=== PATIENT | female | born 1975 | race Caucasian/White ===

== ENCOUNTER 2017-10-17 06:26 | Emergency (ER) | payer BC ==
[~2017-10-17] VITALS: Ht 167.6 cm; Wt 81.4 kg
[2017-10-17] MEDS ORDERED: SODIUM CHLORIDE 0.9% 1000ML 1,000 ML IV STA (06:40)
[2017-10-17] MEDS ORDERED: ONDANSETRON INJ 2 MG/ML 2 ML VIAL IV STA (06:45)
[2017-10-17] MEDS ORDERED: MoRPHine SULFATE 4 MG/ML 1 ML CARP\\VIAL IV STA (06:45)
[2017-10-17] MEDS ORDERED: LEVO25TA5 PO (06:52)
[2017-10-17] MEDS ORDERED: HYDR12.55 PO (06:52)
[2017-10-17 07:02] LABS: BASO % 0.4 %; BASO ABS # 0.02 K/uL (0-0.2); EOS % 2.3 %; EOS ABS # 0.12 K/uL (0-0.5); HEMATOCRIT 41.7 % (37-47); HEMOGLOBIN 14.6 g/dL (12.0-16.0); IG# 0.01 K/uL (0.00-0.02); LYMPH % 27.7 %; LYMPH ABS # 1.44 K/uL (1.2-3.4); MEAN CELL VOLUME 93.9 fL (80-100); MEAN CORPUSCULAR HEMOGLOBIN 32.9 pg (25-34); MEAN PLATELET VOLUME 9.3 fL (7.4-10.4); MONO % 10.4 %; MONO ABS # 0.54 K/uL (0.11-0.59); NEUT ABS # 3.07 K/uL (1.4-6.5); PLATELET COUNT 259 K/uL (130-400); RED CELL DISTRIBUTION WIDTH CV 12.5 % (11.5-14.5); RED CELL DISTRIBUTION WIDTH SD 42.8 fL (36.4-46.3)
[2017-10-17 07:15] LABS: CREATININE 0.74 mg/dl (0.60-1.20); POTASSIUM 3.2 mmol/L (3.5-5.1)
[2017-10-17 07:17] LABS: TOTAL PROTEIN 7.7 gm/dl (6.4-8.2)
--- NOTE | 2017-10-17 07:17 | DIAGNOSTIC IMAGING REPORT ---
SINGLE VIEW CHEST CLINICAL HISTORY: Epigastric abdominal pain. FINDINGS: An AP, portable, upright chest radiograph is obtained. No prior studies are available for comparison at the time of dictation. The examination is degraded by portable technique and patient rotation. The cardiomediastinal silhouette is unremarkable. The lungs and pleural spaces are clear. No pneumothorax is seen. The bony thorax is grossly intact. IMPRESSION: No active disease in the chest. Electronically signed by: Chritsiano Schneider M.D. 10/17/2017 7:15 AM Dictated Date/Time: 10/17/2017 7:15 AM
--- NOTE | 2017-10-17 08:55 | DIAGNOSTIC IMAGING REPORT ---
ULTRASOUND RIGHT UPPER QUADRANT ABDOMEN CLINICAL HISTORY: Right upper quadrant abdominal pain. COMPARISON STUDY: No priors. TECHNIQUE: Real-time, grayscale, and color flow sonography of the right upper quadrant of the abdomen was performed. Images are reviewed in the transverse and longitudinal planes. FINDINGS: Liver: The liver is normal in size and echotexture. There is no intrahepatic biliary ductal dilatation. The main portal vein is patent. Gallbladder: The gallbladder is normal in appearance. No gallstones are identified. There is no gallbladder wall thickening or pericholecystic fluid. A sonographic Hester's sign is reportedly absent. The common bile duct measures up to 0.4 cm in diameter. Pancreas: Visualized portions of the pancreatic head and body are normal in appearance. The splenic vein is patent. Right kidney: Survey images of the right kidney demonstrate normal size and echotexture. There is no hydronephrosis. A shadowing nonobstructing calculus is seen in the right upper pole. Ascites: None. IMPRESSION: 1. No acute sonographic abnormality is seen in the right upper quadrant. No gallstones are identified. 2. A nonobstructing right renal calculus is identified. Electronically signed by: Christiano Schneider M.D. 10/17/2017 8:54 AM Dictated Date/Time: 10/17/2017 8:53 AM
[2017-10-17] MEDS ORDERED: OPTIRAY 320 IV PRN (09:30)
--- NOTE | 2017-10-17 09:53 | DIAGNOSTIC IMAGING REPORT ---
CT ABD/PELVIS IV CONTRAST ONLY CLINICAL HISTORY: Epigastric pain and fever COMPARISON STUDY: Biliary ultrasound dated 10/09/2017 TECHNIQUE: Following the IV administration of 92 mL of Optiray-320, CT scan of the abdomen and pelvis was performed from the lung bases to the proximal femurs. Images are reviewed in the axial, sagittal, and coronal planes. IV contrast was administered without complication. A dose lowering technique was utilized adhering to the principles of ALARA. CT DOSE: 745.52 mGycm FINDINGS: Lower chest: The heart is normal in size and configuration, without pericardial effusion. The lung bases and pleural spaces are clear. Liver: There is a to small to characterize 3 mm hypodensity within the right hepatic lobe. The portal vein and hepatic veins appear patent Gallbladder: Unremarkable. Spleen: Normal in size and attenuation. Pancreas: Unremarkable. Adrenal glands: Unremarkable. Kidneys: There is symmetric renal cortical enhancement. The kidneys are normal in size without hydronephrosis. There are bilateral nonobstructing renal calculi. Bowel: There are no transition zones indicate bowel obstruction. The appendix appears normal. There is no acute diverticulitis. Peritoneum: There is no intraperitoneal free air or abdominal ascites. Vasculature: The abdominal aorta is normal in course and caliber. There is a retroaortic left renal vein Adenopathy: None. Pelvic viscera: The bladder, and pelvic viscera are unremarkable. Skeletal structures: No destructive osseous lesions are seen. IMPRESSION: 1. No acute intra-abdominal or pelvic findings 2. No evidence of bowel obstruction. No evidence of free air 3. Normal appendix 4. Bilateral nephrolithiasis. No evidence of hydronephrosis. Electronically signed by: Neville Angeles M.D. 10/17/2017 9:52 AM Dictated Date/Time: 10/17/2017 9:47 AM
[2017-10-17] MEDS ORDERED: MoRPHine SULFATE 2 MG/ML CARP IV PRN ×2 (11:45)
[2017-10-17] MEDS ORDERED: ONDANSETRON INJ 2 MG/ML 2 ML VIAL IV PRN (11:45)
--- NOTE | 2017-10-17 11:51 | History and Physical ---
History & Physical Date & Time of Service: Oct 17, 2017 at 11:51 Chief Complaint: Rt Top Stomach,Major Back Pain,Fever On/Off,Chills Primary Care Physician: No Doctor, Assigned History of Present Illness Source: patient Josh is a pleasant 42-year-old female who presented to the emergency room today with complaint of right upper quadrant abdominal pain that began Sunday evening. She describes the pain as in the right upper quadrant and midline with radiation around her right side to her back. She states the pain woke her up at 4 AM on Sunday. Sharp in nature rated 8 out of 10. States the pain at this intensity would last for a couple hours and then slightly improved. She noticed that this pain would mostly occur at nighttime and wakes her up in the evening. Not necessarily after eating. States she eats pretty healthy no changes in her diet recently. She did notice subjective fever however did not take her temperature. Had associated chills and sweats following ibuprofen for presumed fever. Associated nausea and some vomiting as well as diarrhea. Last bowel movement was 2 days ago. Josh states that she was in her normal state of health prior to Sunday. She is very active and usually does not complain much of pain. She was unsure if she was having flulike symptoms however she notes that the pain has not significantly improved since Sunday. Unable to take much in by mouth. She denies of any chest pain, shortness of breath, difficulty breathing, changes in bowel habits, blood in stools, black tarry stools, heartburn, reflux, changes in urination, blood in the urine, dysuria. She has a history of kidney stones in the past but states this pain is different in quality. She also has history of endometriosis in which she has had for 5 diagnostic laparoscopies, last being in 1993. No problems with endometriosis since. Her twin sister is present during examination and states her sister does not complain much of pain. She knew something was wrong due to the constant pain since Sunday. Emergency room workup included labs no leukocytosis. CMP completely within normal limits except for slightly low potassium at 3.2. CT scan of the abdomen and pelvis with IV contrast only showed no acute intra-abdominal or pelvic findings. Right upper quadrant ultrasound showed no findings of gallstones or evidence of gallbladder wall thickening or pericholecystic fluid common bile duct measuring 0.4 cm in diameter. Single view chest x-ray within normal limits she also had troponin which was within normal limits and EKG which just showed sinus bradycardia. Past Medical/Surgical History Medical Problems: 1. Kidney Stones 2. Endometriosis 3. HTN 4. Hypothyroidism Past Surgical History: 1. Multiple diagnostic laparoscopies for endometriosis Social History Smoking Status: Never Smoker Alcohol Use: socially Drug Use: none Occupational Status: employed Allergies Coded Allergies: Penicillins (Verified Allergy, Unknown, HIVES, 10/17/17) Home Medications Scheduled Hydrochlorothiazide (Hydrochlorothiazide), 1 TAB PO DAILY Levothyroxine Sodium (Levothyroxine Sodium), 1 TAB PO DAILY Review of Systems Constitutional: + fever, + chills, + sweats, + problem reported (low appetite) Respiratory: No cough, No shortness of breath Cardiovascular: No chest pain Abdomen: + pain, + nausea, + vomiting, + diarrhea, No GI bleeding Genitourinary - Female: No dysuria, No urinary frequency, No urinary urgency Hematologic / Lymphatic: No abnormal bleeding/bruising Integumentary: No rash Physical Exam Vital Signs Date Time Temp Pulse Resp B/P (MAP) Pulse Ox O2 Delivery O2 Flow Rate FiO2 10/17/17 10:33 80 16 125/88 98 Room Air 10/17/17 08:22 57 16 145/81 97 Room Air 10/17/17 06:31 36.7 73 20 153/91 100 Room Air General Appearance: WD/WN, no apparent distress Head: normocephalic, atraumatic Eyes: sclerae normal ENT: hearing grossly normal Neck: trachea midline Respiratory/Chest: lungs clear, normal breath sounds, no respiratory distress, no accessory muscle use Cardiovascular: regular rate, rhythm, no murmur Abdomen/GI: normal bowel sounds, soft, no organomegaly, no pulsatile mass, + tenderness (RUQ on deep palpation, negative Hester's sign, no involuntary guarding, rebound, or peritonitis) Back: normal inspection Extremities/Musculoskelatal: no pedal edema Neurologic/Psych: alert, normal mood/affect, oriented x 3 Skin: normal color, warm/dry, no rash Diagnostics Laboratory Results Results Past 24 Hours Test 10/17/17 06:50 10/17/17 08:21 Range/Units White Blood Count 5.20 4.8-10.8 K/uL Red Blood Count 4.44 4.2-5.4 M/uL Hemoglobin 14.6 12.0-16.0 g/dL Hematocrit 41.7 37-47 % Mean Corpuscular Volume 93.9 80-100 fL Mean Corpuscular Hemoglobin 32.9 25-34 pg Mean Corpuscular Hemoglobin Concent 35.0 32-36 g/dl Platelet Count 259 130-400 K/uL Mean Platelet Volume 9.3 7.4-10.4 fL Neutrophils (%) (Auto) 59.0 % Lymphocytes (%) (Auto) 27.7 % Monocytes (%) (Auto) 10.4 % Eosinophils (%) (Auto) 2.3 % Basophils (%) (Auto) 0.4 % Neutrophils # (Auto) 3.07 1.4-6.5 K/uL Lymphocytes # (Auto) 1.44 1.2-3.4 K/uL Monocytes # (Auto) 0.54 0.11-0.59 K/uL Eosinophils # (Auto) 0.12 0-0.5 K/uL Basophils # (Auto) 0.02 0-0.2 K/uL RDW Standard Deviation 42.8 36.4-46.3 fL RDW Coefficient of Variation 12.5 11.5-14.5 % Immature Granulocyte % (Auto) 0.2 % Immature Granulocyte # (Auto) 0.01 0.00-0.02 K/uL Sodium Level 136 136-145 mmol/L Potassium Level 3.2 3.5-5.1 mmol/L Chloride Level 100 98-107 mmol/L Carbon Dioxide Level 29 21-32 mmol/L Anion Gap 7.0 3-11 mmol/L Blood Urea Nitrogen 10 7-18 mg/dl Creatinine 0.74 0.60-1.20 mg/dl Est Creatinine Clear Calc Drug Dose 105.4 ml/min Estimated GFR () 115.0 Estimated GFR (Non- 99.2 BUN/Creatinine Ratio 13.5 10-20 Random Glucose 98 70-99 mg/dl Calcium Level 9.0 8.5-10.1 mg/dl Total Bilirubin 0.7 0.2-1 mg/dl Direct Bilirubin 0.1 0-0.2 mg/dl Aspartate Amino Transf (AST/SGOT) 17 15-37 U/L Alanine Aminotransferase (ALT/SGPT) 24 12-78 U/L Alkaline Phosphatase 49 45-117 U/L Troponin I < 0.015 0-0.045 ng/ml Total Protein 7.7 6.4-8.2 gm/dl Albumin 4.0 3.4-5.0 gm/dl Lipase 106 73-393 U/L Urine Color YELLOW Urine Appearance CLEAR CLEAR Urine pH 7.0 4.5-7.5 Urine Specific [place] 1.008 1.000-1.030 Urine Protein NEG NEG Urine Glucose (UA) NEG NEG Urine Ketones NEG NEG Urine Occult Blood NEG NEG Urine Nitrite NEG NEG Urine Bilirubin NEG NEG Urine Urobilinogen NEG NEG Urine Leukocyte Esterase NEG NEG Urine WBC (Auto) 0 0-5 /hpf Urine RBC (Auto) 0-4 0-4 /hpf Urine Hyaline Casts (Auto) 0 0-5 /lpf Urine Epithelial Cells (Auto) 0-5 0-5 /lpf Urine Bacteria (Auto) NEG NEG Urine Test NEG NEG Diagnostic Radiology CT ABD/PELVIS IV CONTRAST ONLY CLINICAL HISTORY: Epigastric pain and fever COMPARISON STUDY: Biliary ultrasound dated 10/09/2017 TECHNIQUE: Following the IV administration of 92 mL of Optiray-320, CT scan of the abdomen and pelvis was performed from the lung bases to the proximal femurs. Images are reviewed in the axial, sagittal, and coronal planes. IV contrast was administered without complication. A dose lowering technique was utilized adhering to the principles of ALARA. CT DOSE: 745.52 mGycm FINDINGS: Lower chest: The heart is normal in size and configuration, without pericardial effusion. The lung bases and pleural spaces are clear. Liver: There is a to small to characterize 3 mm hypodensity within the right hepatic lobe. The portal vein and hepatic veins appear patent Gallbladder: Unremarkable. Spleen: Normal in size and attenuation. Pancreas: Unremarkable. Adrenal glands: Unremarkable. Kidneys: There is symmetric renal cortical enhancement. The kidneys are normal in size without hydronephrosis. There are bilateral nonobstructing renal calculi. Bowel: There are no transition zones indicate bowel obstruction. The appendix appears normal. There is no acute diverticulitis. Peritoneum: There is no intraperitoneal free air or abdominal ascites. Vasculature: The abdominal aorta is normal in course and caliber. There is a retroaortic left renal vein Adenopathy: None. Pelvic viscera: The bladder, and pelvic viscera are unremarkable. Skeletal structures: No destructive osseous lesions are seen. IMPRESSION: 1. No acute intra-abdominal or pelvic findings 2. No evidence of bowel obstruction. No evidence of free air 3. Normal appendix 4. Bilateral nephrolithiasis. No evidence of hydronephrosis. ULTRASOUND RIGHT UPPER QUADRANT ABDOMEN CLINICAL HISTORY: Right upper quadrant abdominal pain. COMPARISON STUDY: No priors. TECHNIQUE: Real-time, grayscale, and color flow sonography of the right upper quadrant of the abdomen was performed. Images are reviewed in the transverse and longitudinal planes. FINDINGS: Liver: The liver is normal in size and echotexture. There is no intrahepatic biliary ductal dilatation. The main portal vein is patent. Gallbladder: The gallbladder is normal in appearance. No gallstones are identified. There is no gallbladder wall thickening or pericholecystic fluid. A sonographic Hester's sign is reportedly absent. The common bile duct measures up to 0.4 cm in diameter. Pancreas: Visualized portions of the pancreatic head and body are normal in appearance. The splenic vein is patent. Right kidney: Survey images of the right kidney demonstrate normal size and echotexture. There is no hydronephrosis. A shadowing nonobstructing calculus is seen in the right upper pole. Ascites: None. IMPRESSION: 1. No acute sonographic abnormality is seen in the right upper quadrant. No gallstones are identified. 2. A nonobstructing right renal calculus is identified. CXR normal EKG Sinus Bradycardia otherwise normal EKG Impression Assessment and Plan 42 year-old female who presented to emergency room with RUQ abdominal pain x 4 days with associated subjective fever, nausea, vomiting, and diarrhea. Moderate severity of RUQ abdominal pain with intermittent episodes of severe pain with associated nausea. No leukocytosis, US showed no stones or evidence of acute cholecystitis, LFTS within normal limits, CT scan of abdomen and pelvis unremarkable. Examination showed soft abdomen, RUQ tenderness, no peritonitis. Plan: Given patient has had this persistent RUQ abdominal pain with associated nausea , vomiting, and inability to keep much food down would like to admit patient for observation and order HIDA scan to evaluate gallbladder further. May have Biliary dyskinesia vs PUD?? GI consultation for further evaluation HIDA scan with EF Admit to Med/Surg for observation: IV Fluids, NPO until HIDA scan, IV pain management and IV Zofran as needed, will add IV Protonix as patient NPO Will give 20 mEq of Potassium IV Discussed patient with Dr. Chua who agrees with above and will evaluate patient later today. Resuscitation Status VTE Prophylaxis Will order VTE Prophylaxis: Yes
[2017-10-17] MEDS ORDERED: IV FLUIDS COMPLETED PRN (12:45)
[2017-10-17 13:03] VITALS: O2SAT 99
[2017-10-17 13:08] VITALS: BP 149/81; PULSE 66; TEMP 36.5; O2SAT 96; Ht 167.6 cm; Wt 81.4 kg
--- NOTE | 2017-10-17 14:04 | EMERGENCY ROOM VISIT NOTE ---
History Report prepared by Pacoibcynthia: Graeme Griffith Under the Supervision of: Dr. Anuel Parmar D.O. First contact with patient: 06:36 Chief Complaint: ABDOMINAL PAIN Stated Complaint: RT TOP STOMACH,MAJOR BACK PAIN,FEVER ON/OFF,CHILLS History of Present Illness The patient is a 42 year old female who presents to the Emergency Room with complaints of intermittent RUQ abdominal pain beginning four days ago. Her pain wraps around her right side to her back. She also complains of subjective fevers , nausea, vomiting, and diarrhea. The patient's pain is worsened with eating. She rates her pain as an 8/10 in severity. She is concerned that her symptoms may be related to her gallbladder. She has no history of abdominal surgery. The patient notes that her urine appeared a bit orange a few days ago, but appeared normal yesterday. Her last normal bowel movement was two days ago. Pt denies headache, change in vision, chest pain, shortness of breath, pain with urination , and melena. She has a history of kidney stones, and states that her pain is comparable in intensity, but feels different in quality. Source of History: patient Onset: A few days ago Position: abdomen (RUQ) Symptom Intensity: 8/10 Timing: intermittent Modifying Factors (Worsening): eating Associated Symptoms: + fevers (subjective), + nausea, + vomiting, + back pain, + diarrhea, No headache, No chest pain, No SOB, No melena Review of Systems See HPI for pertinent positives & negatives. A total of 10 systems reviewed and were otherwise negative. Past Medical & Surgical Medical Problems: (1) Anorexia (2) Kidney stones (3) No Known Active Medical Problems (4) RUQ abdominal pain Family History No pertinent family history stated. Social History Smoking Status: Never Smoker Occupation Status: employed Current/Historical Medications Scheduled Hydrochlorothiazide (Hydrochlorothiazide), 1 TAB PO DAILY Levothyroxine Sodium (Levothyroxine Sodium), 1 TAB PO DAILY Allergies Coded Allergies: Penicillins (Verified Allergy, Unknown, HIVES, 10/17/17) Physical Exam Vital Signs Date Time Temp Pulse Resp B/P (MAP) Pulse Ox O2 Delivery O2 Flow Rate FiO2 10/17/17 10:33 80 16 125/88 98 Room Air 10/17/17 08:22 57 16 145/81 97 Room Air 10/17/17 06:31 36.7 73 20 153/91 100 Room Air Physical Exam GENERAL: Sitting up in bed, uncomfortable, holding RUQ. EYE EXAM: normal conjunctiva. PERRL and EOM's grossly intact. OROPHARYNX: no exudate, no erythema, lips, buccal mucosa, and tongue normal and mucous membranes are moist NECK: supple, no nuchal rigidity, no adenopathy, non-tender LUNGS: Clear to auscultation. Normal chest wall mechanics HEART: no murmurs, S1 normal and S2 normal ABDOMEN: abdomen soft, normo-active bowel sounds, no masses, no rebound or guarding. Tender to palpation of the RUQ. BACK: Back is symmetrical on inspection and there is no deformity, no midline tenderness, no CVA tenderness. SKIN: no rashes and no bruising UPPER EXTREMITIES: upper extremities are grossly normal. LOWER EXTREMITIES: No pitting edema. NEURO EXAM: Normal sensorium, cranial nerves II-XII grossly intact, normal speech, no gross weakness of arms, no gross weakness of legs. Medical Decision & Procedures ER Provider Diagnostic Interpretation: Radiology results as stated below per my review and the radiologist's interpretation: ULTRASOUND RIGHT UPPER QUADRANT ABDOMEN FINDINGS: Liver: The liver is normal in size and echotexture. There is no intrahepatic biliary ductal dilatation. The main portal vein is patent. Gallbladder: The gallbladder is normal in appearance. No gallstones are identified. There is no gallbladder wall thickening or pericholecystic fluid. A sonographic Hester's sign is reportedly absent. The common bile duct measures up to 0.4 cm in diameter. Pancreas: Visualized portions of the pancreatic head and body are normal in appearance. The splenic vein is patent. Right kidney: Survey images of the right kidney demonstrate normal size and echotexture. There is no hydronephrosis. A shadowing nonobstructing calculus is seen in the right upper pole. Ascites: None. IMPRESSION: 1. No acute sonographic abnormality is seen in the right upper quadrant. No gallstones are identified. 2. A nonobstructing right renal calculus is identified. Electronically signed by: Christiano Schneider M.D. 10/17/2017 8:54 AM SINGLE VIEW CHEST FINDINGS: An AP, portable, upright chest radiograph is obtained. No prior studies are available for comparison at the time of dictation. The examination is degraded by portable technique and patient rotation. The cardiomediastinal silhouette is unremarkable. The lungs and pleural spaces are clear. No pneumothorax is seen. The bony thorax is grossly intact. IMPRESSION: No active disease in the chest. Electronically signed by: Christiano Schneider M.D. 10/17/2017 7:[address] ABD/PELVIS IV CONTRAST ONLY FINDINGS: Lower chest: The heart is normal in size and configuration, without pericardial effusion. The lung bases and pleural spaces are clear. Liver: There is a to small to characterize 3 mm hypodensity within the right hepatic lobe. The portal vein and hepatic veins appear patent Gallbladder: Unremarkable. Spleen: Normal in size and attenuation. Pancreas: Unremarkable. Adrenal glands: Unremarkable. Kidneys: There is symmetric renal cortical enhancement. The kidneys are normal in size without hydronephrosis. There are bilateral nonobstructing renal calculi. Bowel: There are no transition zones indicate bowel obstruction. The appendix appears normal. There is no acute diverticulitis. Peritoneum: There is no intraperitoneal free air or abdominal ascites. Vasculature: The abdominal aorta is normal in course and caliber. There is a retroaortic left renal vein Adenopathy: None. Pelvic viscera: The bladder, and pelvic viscera are unremarkable. Skeletal structures: No destructive osseous lesions are seen. IMPRESSION: 1. No acute intra-abdominal or pelvic findings 2. No evidence of bowel obstruction. No evidence of free air 3. Normal appendix 4. Bilateral nephrolithiasis. No evidence of hydronephrosis. Electronically signed by: Neville Angeles M.D. 10/17/2017 9:52 AM Laboratory Results 10/17/17 06:50 Red Blood Count 4.44, Mean Corpuscular Volume 93.9, Mean Corpuscular Hemoglobin 32.9, Mean Corpuscular Hemoglobin Concent 35.0, Mean Platelet Volume 9.3, Neutrophils (%) (Auto) 59.0, Lymphocytes (%) (Auto) 27.7, Monocytes (%) (Auto) 10.4, Eosinophils (%) (Auto) 2.3, Basophils (%) (Auto) 0.4, Neutrophils # (Auto ) 3.07, Lymphocytes # (Auto) 1.44, Monocytes # (Auto) 0.54, Eosinophils # (Auto ) 0.12, Basophils # (Auto) 0.02 3/28/18 06:50 Test 10/17/17 06:50 10/17/17 08:21 White Blood Count 5.20 K/uL (4.8-10.8) Red Blood Count 4.44 M/uL (4.2-5.4) Hemoglobin 14.6 g/dL (12.0-16.0) Hematocrit 41.7 % (37-47) Mean Corpuscular Volume 93.9 fL (80-100) Mean Corpuscular Hemoglobin 32.9 pg (25-34) Mean Corpuscular Hemoglobin Concent 35.0 g/dl (32-36) Platelet Count 259 K/uL (130-400) Mean Platelet Volume 9.3 fL (7.4-10.4) Neutrophils (%) (Auto) 59.0 % Lymphocytes (%) (Auto) 27.7 % Monocytes (%) (Auto) 10.4 % Eosinophils (%) (Auto) 2.3 % Basophils (%) (Auto) 0.4 % Neutrophils # (Auto) 3.07 K/uL (1.4-6.5) Lymphocytes # (Auto) 1.44 K/uL (1.2-3.4) Monocytes # (Auto) 0.54 K/uL (0.11-0.59) Eosinophils # (Auto) 0.12 K/uL (0-0.5) Basophils # (Auto) 0.02 K/uL (0-0.2) RDW Standard Deviation 42.8 fL (36.4-46.3) RDW Coefficient of Variation 12.5 % (11.5-14.5) Immature Granulocyte % (Auto) 0.2 % Immature Granulocyte # (Auto) 0.01 K/uL (0.00-0.02) Anion Gap 7.0 mmol/L (3-11) Est Creatinine Clear Calc Drug Dose 105.4 ml/min Estimated GFR () 115.0 Estimated GFR (Non- 99.2 BUN/Creatinine Ratio 13.5 (10-20) Calcium Level 9.0 mg/dl (8.5-10.1) Total Bilirubin 0.7 mg/dl (0.2-1) Direct Bilirubin 0.1 mg/dl (0-0.2) Aspartate Amino Transf (AST/SGOT) 17 U/L (15-37) Alanine Aminotransferase (ALT/SGPT) 24 U/L (12-78) Alkaline Phosphatase 49 U/L (45-117) Troponin I < 0.015 ng/ml (0-0.045) Total Protein 7.7 gm/dl (6.4-8.2) Albumin 4.0 gm/dl (3.4-5.0) Lipase 106 U/L (73-393) Urine Color YELLOW Urine Appearance CLEAR (CLEAR) Urine pH 7.0 (4.5-7.5) Urine Specific [place] 1.008 (1.000-1.030) Urine Protein NEG (NEG) Urine Glucose (UA) NEG (NEG) Urine Ketones NEG (NEG) Urine Occult Blood NEG (NEG) Urine Nitrite NEG (NEG) Urine Bilirubin NEG (NEG) Urine Urobilinogen NEG (NEG) Urine Leukocyte Esterase NEG (NEG) Urine WBC (Auto) 0 /hpf (0-5) Urine RBC (Auto) 0-4 /hpf (0-4) Urine Hyaline Casts (Auto) 0 /lpf (0-5) Urine Epithelial Cells (Auto) 0-5 /lpf (0-5) Urine Bacteria (Auto) NEG (NEG) Urine Test NEG (NEG) Laboratory results per my review. Medications Administered Medications (Trade) Dose Ordered Sig/Gail Route Start Time Stop Time Status Last Admin Dose Admin Sodium Chloride 1,000 ml @ 999 mls/hr Q1H1M STAT IV 10/17/17 06:40 10/17/17 07:40 DC 10/17/17 06:40 999 MLS/HR Morphine Sulfate (MoRPHine SULFATE INJ) 4 mg NOW STAT IV 10/17/17 06:45 10/17/17 06:46 DC 10/17/17 06:51 4 MG Ondansetron HCl (Zofran Inj) 4 mg NOW STAT IV 10/17/17 06:45 10/17/17 06:46 DC 10/17/17 06:51 4 MG ECG Per My Interpretation Indication: abdominal pain Rate (beats per minute): 53 Rhythm: sinus bradycardia Findings: no ectopy, other (Normal axis. ) ED Course ED COURSE: Vital signs were reviewed and showed hypertension The patients medical record was reviewed The above diagnostic studies were performed and reviewed. ED treatments and interventions as stated above. 0637: The patient was evaluated in room B12B. A complete history and physical examination was performed. 0640: Ordered Sodium Chloride 1000 ml @ 999 mls/hr IV. 0645: Ordered Zofran Inj 4 mg IV, Morphine Sulfate 4 mg IV. 0857: I updated the patient on her test results. 1135: Upon reevaluation, the patient is resting. I discussed my findings with the patient and she understands and agrees with the treatment plan. Based on the patients age, coexisting illnesses, exam and lab findings the decision to treat as an inpatient was made. The patient remained stable while under my care. The patient will be evaluated for further management. Medical Decision Differential diagnoses includes but is not limited to gastritis, peptic ulcer disease, GERD, gallbladder disease, pancreatitis, small bowel obstruction, acute coronary syndrome, pericarditis, ischemic bowel, irritable bowel disease, irritable bowel syndrome, appendicitis, diverticulitis, malignancy, hernia, urinary tract infection, torsion, /ectopic , perforation, trauma, infectious. Patient is a 42-year-old female who presents to ER for right upper quadrant abdominal pain which is been present for the past 3 days. Worse with eating and drinking. On exam she is slightly tender. CBC along with BMP, LFTs, bilirubin lipase was negative. UA was unremarkable. was negative. Ultrasound and CT abdomen pelvis were benign. She was given IV narcotics. She did feel slightly better. On exam she still did have right upper quadrant tenderness. EKG and troponin were negative. Uncertain of the true etiology of her pain however I do feel this most consistent with biliary colic. She does have a trip coming up in with her presentation elect to have her evaluated by general surgery. General surgery did elect to observe her overnight for further evaluation. Medication Reconcilliation Current Medication List: was personally reviewed by me Blood Pressure Screening Patient's blood pressure: Elevated blood pressure Blood pressure disposition: Elevated BP felt to be situational Consults Time Called: 1042 Consulting Physician: Zaida Rowley PA-C - General Surgery Returned Call: 1052 I reviewed the patient's case with Zaida Rowley PA-C. General Surgery will come evaluate the patient in the ED. 1140: I spoke with Zaida Rowley PA-C again. General Surgery will evaluate the patient for further management. Impression Primary Impression: Biliary colic Scribe Attestation The scribe's documentation has been prepared under my direction and personally reviewed by me in its entirety. I confirm that the note above accurately reflects all work, treatment, procedures, and medical decision making performed by me. Departure Information Dispostion Being Evaluated By Surgeon Referrals No Doctor, Assigned (PCP) Patient Instructions My [facility]
[2017-10-17] MEDS: PANTOprazole INJ 40 MG in SYRINGE 0 ML IV SCH (14:16)
[2017-10-17] MEDS: SODIUM CHLORIDE 0.9% 1000ML 1,000 ML IV SCH (14:18)
[2017-10-17] MEDS: POTASSIUM CHLR 10 MEQ / WTR 10 MEQ in PREMIXED WATER 100 ML IV SCH ×2 (14:18→15:49)
--- NOTE | 2017-10-17 14:40 | Gastrointestinal Consultation ---
Gastrointestinal Consultation Date of Consultation: Oct 17, 2017 Attending Physician: Zaida Rowley/Dr. Gabby Chua Consulting Physician: Tavo Miramontes Reason for Consultation: RUQ abd pain, N/V/D History of Present Illness Patient is a 42 year old female seen for RUQ abd pain, n/v/d. She has hx of hypothyroidism, HTN, and at usual health state until last Sunday when she suddenly felt sharp RUQ abd pain with radiating to her back. She has associated N/V, and loose stools for the next day or so. Decreased PO intake, tried eating crackers and pain, nausea started again. She has hx of kidney stones pain and she mentioned this felt like a similar type of pay but located on RUQ abd area, and she denies any associated dysuria, hematuria. She had normal CBC, CMP including LFTs and Lipase, UA and negative urine . CT and gallbladder u /s w/o signs of gallstones, thickening, biliary dilation, bowel obstruction. She denies any tobacco, NSAIDs, + social ETOH use, no illicit drugs. Surgery had seen pt and they are planning HIDA scan. Past Medical/Surgical History Past Medical History: As above Past Surgical History: Laparoscopic surgery for endometriosis Family History Unrelated to current admission Social History Smoking Status: Never Smoker Alcohol Use: occasionally Drug Use: none Occupation Status: employed Allergies Coded Allergies: Penicillins (Verified Allergy, Unknown, HIVES, 10/17/17) Current Medications Home Meds and Scripts Medications Dose Route/Sig Max Daily Dose Days Date Category Hydrochlorothiazide 12.5 Mg Tab 1 Tab PO DAILY 10/17/17 Reported Levothyroxine Sodium 25 Mcg Tab 1 Tab PO DAILY 10/17/17 Reported Review of Systems Constitutional: No fever, No chills Respiratory: No cough, No shortness of breath Cardiac: No chest pain Abdomen: + pain (epigastric/RUQ), + nausea, + vomiting, + diarrhea Skin: No rash, No itch, No jaundice Physical Exam Date Time Temp Pulse Resp B/P (MAP) Pulse Ox O2 Delivery O2 Flow Rate FiO2 10/17/17 13:03 74 18 153/106 99 10/17/17 12:20 74 18 153/106 99 Room Air 10/17/17 10:33 80 16 125/88 98 Room Air 10/17/17 08:22 57 16 145/81 97 Room Air 10/17/17 06:31 36.7 73 20 153/91 100 Room Air General Appearance: WD/WN, no apparent distress Eyes: normal inspection, PERRL, EOMI Neck: supple, no JVD, trachea midline Respiratory/Chest: normal breath sounds, no respiratory distress, no accessory muscle use Cardiovascular: regular rate, rhythm, no gallop, no murmur Abdomen: normal bowel sounds, soft, + tenderness (RUQ) Extremities: normal inspection, no pedal edema, no calf tenderness Neurologic/Psych: alert, normal mood/affect, oriented x 3 Skin: normal color, warm/dry, no rash Laboratory Results Last 24 Hours Test 10/17/17 06:50 10/17/17 08:21 White Blood Count 5.20 K/uL Red Blood Count 4.44 M/uL Hemoglobin 14.6 g/dL Hematocrit 41.7 % Mean Corpuscular Volume 93.9 fL Mean Corpuscular Hemoglobin 32.9 pg Mean Corpuscular Hemoglobin Concent 35.0 g/dl Platelet Count 259 K/uL Mean Platelet Volume 9.3 fL Neutrophils (%) (Auto) 59.0 % Lymphocytes (%) (Auto) 27.7 % Monocytes (%) (Auto) 10.4 % Eosinophils (%) (Auto) 2.3 % Basophils (%) (Auto) 0.4 % Neutrophils # (Auto) 3.07 K/uL Lymphocytes # (Auto) 1.44 K/uL Monocytes # (Auto) 0.54 K/uL Eosinophils # (Auto) 0.12 K/uL Basophils # (Auto) 0.02 K/uL RDW Standard Deviation 42.8 fL RDW Coefficient of Variation 12.5 % Immature Granulocyte % (Auto) 0.2 % Immature Granulocyte # (Auto) 0.01 K/uL Sodium Level 136 mmol/L Potassium Level 3.2 mmol/L Chloride Level 100 mmol/L Carbon Dioxide Level 29 mmol/L Anion Gap 7.0 mmol/L Blood Urea Nitrogen 10 mg/dl Creatinine 0.74 mg/dl Est Creatinine Clear Calc Drug Dose 105.4 ml/min Estimated GFR () 115.0 Estimated GFR (Non- 99.2 BUN/Creatinine Ratio 13.5 Random Glucose 98 mg/dl Calcium Level 9.0 mg/dl Total Bilirubin 0.7 mg/dl Direct Bilirubin 0.1 mg/dl Aspartate Amino Transf (AST/SGOT) 17 U/L Alanine Aminotransferase (ALT/SGPT) 24 U/L Alkaline Phosphatase 49 U/L Troponin I < 0.015 ng/ml Total Protein 7.7 gm/dl Albumin 4.0 gm/dl Lipase 106 U/L Urine Color YELLOW Urine Appearance CLEAR Urine pH 7.0 Urine Specific [place] 1.008 Urine Protein NEG Urine Glucose (UA) NEG Urine Ketones NEG Urine Occult Blood NEG Urine Nitrite NEG Urine Bilirubin NEG Urine Urobilinogen NEG Urine Leukocyte Esterase NEG Urine WBC (Auto) 0 /hpf Urine RBC (Auto) 0-4 /hpf Urine Hyaline Casts (Auto) 0 /lpf Urine Epithelial Cells (Auto) 0-5 /lpf Urine Bacteria (Auto) NEG Urine Test NEG Impression Patient is a 42 year old female w sharp epigastric/RUQ pain radiating to back starting on Sunday, associated w N/V/D symptoms. Currently symptoms are improved but RUQ pain persist. Imaging studies w/o acute intraabdominal or hepatobiliary pathology. Her LFTs, Lipase all normal. DDx: biliary colic w passage of microlithiasis, PUD, gastritis, Hpylori, IBS. Plan - Ok for FL diet today but keep NPO after midnight for EGD eval tomorrow - Protonix 40mg daily. - Bentyl 20mg BID - If RUQ pain persist with clean EGD tomorrow, then will consider EUS eval in outpt setting. I performed a history and physical examination of the patient, including specifically on physical exam - no abdominal tenderness. I have discussed the patient's management with JAI Jung. Please refer to the nurse practitioner's note for the documented findings and plan of care. Will plan for EGD tomorrow. PPI and Bentyl for now.
[2017-10-17 15:30] VITALS: BP 111/72; PULSE 51; TEMP 36.8; O2SAT 98
[2017-10-17] MEDS: MoRPHine SULFATE 2 MG/ML CARP IV PRN ×2 (21:05→23:18)
[2017-10-17] MEDS: DICYCLOMINE HCL 20 MG TAB PO SCH (21:05)
[2017-10-17] MEDS ORDERED: NURSING VERBAL MED ORDER ONE (22:45)
[2017-10-17 22:52] VITALS: BP 124/77; PULSE 67; TEMP 36.8; O2SAT 96
[2017-10-18] MEDS: SODIUM CHLORIDE 0.9% 1000ML 1,000 ML IV SCH ×2 (02:22→12:23)
[2017-10-18 07:36] VITALS: BP 132/66; PULSE 60; TEMP 36.7; O2SAT 97
[2017-10-18] MEDS ORDERED: SINCALIDE IV SCH (08:30)
[2017-10-18] MEDS ORDERED: SODIUM CHLORIDE 0.9% IV SCH (08:30)
[2017-10-18] MEDS ORDERED: LIDOCAINE HCL 2% 2 ML VIAL (20MG/ML) ONE (10:11)
[2017-10-18] MEDS ORDERED: PROPOFOL IV EMULSION 10 MG/ML 20 ML VIAL IV ONE ×2 (10:11→11:06)
--- NOTE | 2017-10-18 10:15 | DIAGNOSTIC IMAGING REPORT ---
Nuclear medicine hepatobiliary scan with ejection fraction analysis CLINICAL HISTORY: RUQ abdominal pain, r/o biliary dyskinesia COMPARISON STUDY: No previous studies for comparison. FINDINGS: The patient was injected with 5.5 mCi of technetium 99 M Choletec. Anterior imaging was performed. Hepatic excretion appeared unremarkable. There was normal passage of activity into small bowel. The gallbladder was first visualized at 10 minute image. At 1 hour, the patient was administered 1.6 mcg of sincalide utilizing a 30 minute intravenous infusion. The gallbladder ejection fraction was normal measuring 96%. The technologist notes the patient had abdominal pain with the sincalide infusion IMPRESSION: 1. No evidence of cystic duct obstruction 2. Normal gallbladder ejection fraction of 96% 3. The patient experienced abdominal pain with the sincalide infusion Electronically signed by: Neville Angeles M.D. 10/18/2017 10:13 AM Dictated Date/Time: 10/18/2017 10:12 AM
--- NOTE | 2017-10-18 10:41 | History & Physical Bridge Note ---
H&P Re-Evaluation Bridge Note: I have examined the patient, reviewed the History & Physical and in the interval since the performance of the History & Physical I have noted the following changes of clinical significance: No changes noted
[2017-10-18] MEDS ORDERED: GLUCAGON FOR INJ 1 MG VIAL ONE (11:04)
--- NOTE | 2017-10-18 11:34 | GI REPORT ---
Procedure Date: 10/18/2017 10:38 AM Procedure: Upper GI endoscopy Indications: Epigastric abdominal pain Medicines: Monitored Anesthesia Care Complications: No immediate complications. Estimated Blood Loss: Estimated blood loss: none. Procedure: Pre-Anesthesia Assessment: - Prior to the procedure, a History and Physical was performed, and patient medications and allergies were reviewed. The patient is competent. The risks and benefits of the procedure and the sedation options and risks were discussed with the patient. All questions were answered and informed consent was obtained. Patient identification and proposed procedure were verified by the physician and the nurse in the procedure room. Mental Status Examination: alert and oriented. Airway Examination: normal oropharyngeal airway and neck mobility. Respiratory Examination: clear to auscultation. CV Examination: normal. ASA Grade Assessment: II - A patient with mild systemic disease. After reviewing the risks and benefits, the patient was deemed in satisfactory condition to undergo the procedure. The anesthesia plan was to use monitored anesthesia care (MAC). Immediately prior to administration of medications, the patient was re-assessed for adequacy to receive sedatives. The heart rate, respiratory rate, oxygen saturations, blood pressure, adequacy of pulmonary ventilation, and response to care were monitored throughout the procedure. The physical status of the patient was re-assessed after the procedure. After obtaining informed consent, the endoscope was passed under direct vision. Throughout the procedure, the patient's blood pressure, pulse, and oxygen saturations were monitored continuously. The scope was introduced through the mouth, and advanced to the second part of duodenum. The Scope was introduced through the and advanced to the. The upper GI endoscopy was accomplished without difficulty. The patient tolerated the procedure well. Findings: The examined esophagus was normal. Mildly erythematous mucosa was found in the gastric antrum. Biopsies were taken with a cold forceps for histology. Biopsies were taken with a cold forceps for Helicobacter pylori testing. Verification of patient identification for the specimen was done by the physician and nurse using the patient's name and date. Localized nodular mucosa was found in the duodenal bulb (?Gastric heterotopia). Biopsies were taken with a cold forceps for histology. The second portion of the duodenum was normal. Biopsies for histology were taken with a cold forceps for evaluation of celiac disease. The area of the papilla was normal by side viewing scope. Impression: - Normal esophagus. - Erythematous mucosa in the antrum. Biopsied. - Nodular mucosa in the duodenal bulb. Biopsied. - Normal second portion of the duodenum. Biopsied. - Normal area of the papilla. Recommendation: - Discharge patient to home (with escort). - Await pathology results. - Follow up as outpatient with GI clinic. - Continue PPI and Bentyyl trial. - If no improvement in a month then consider OP EUS. - Recall GI if needed. Tavo Miramontes MD 10/18/2017 11:33:57 AM This report has been signed electronically. Note Initiated On: 10/18/2017 10:38 AM I attest to the content of the Intraoperative Record and orders documented therein, exceptions below
--- NOTE | 2017-10-18 12:01 | Anesthesiology Progress Note ---
Anesthesia Post Op Note Date & Time Oct 18, 2017 at 12:01 Vital Signs Pain Intensity: 0.0 Vital Signs Past 12 Hours Date Time Temp Pulse Resp B/P (MAP) Pulse Ox O2 Delivery O2 Flow Rate FiO2 10/18/17 11:55 61 16 119/77 (91) 98 Room Air 10/18/17 11:40 63 16 127/89 (102) 98 Room Air 10/18/17 11:25 72 16 131/85 (100) 99 Room Air 10/18/17 10:14 36.8 61 18 123/79 (94) 99 Room Air 10/18/17 08:16 Room Air 10/18/17 07:36 36.7 60 18 132/66 (88) 97 Room Air Notes Mental Status: alert / awake / arousable, participated in evaluation Pt Amnestic to Procedure: Yes Nausea / Vomiting: adequately controlled Pain: adequately controlled Airway Patency, RR, SpO2: stable & adequate BP & HR: stable & adequate Hydration State: stable & adequate Anesthetic Complications: no major complications apparent
[2017-10-18] MEDS: DICYCLOMINE HCL 20 MG TAB PO SCH (12:21)
[2017-10-18] MEDS: PANTOprazole INJ 40 MG in SYRINGE 0 ML IV SCH (12:21)
[2017-10-18 13:06] LABS: HEMATOCRIT 37.4 % (37-47); HEMOGLOBIN 12.9 g/dL (12.0-16.0); MEAN CELL VOLUME 95.4 fL (80-100); MEAN CORPUSCULAR HEMOGLOBIN 32.9 pg (25-34); MEAN CORPUSCULAR HGB CONC 34.5 g/dl (32-36); MEAN PLATELET VOLUME 8.9 fL (7.4-10.4); PLATELET COUNT 211 K/uL (130-400); RED CELL DISTRIBUTION WIDTH CV 12.7 % (11.5-14.5); RED CELL DISTRIBUTION WIDTH SD 43.9 fL (36.4-46.3); WHITE BLOOD COUNT 6.61 K/uL (4.8-10.8)
[2017-10-18 13:41] LABS: ALBUMIN 3.6 gm/dl (3.4-5.0); CALCIUM 8.1 mg/dl (8.5-10.1); CREATININE 0.57 mg/dl (0.60-1.20); POTASSIUM 3.9 mmol/L (3.5-5.1)
[2017-10-18 13:42] LABS: TOTAL PROTEIN 6.5 gm/dl (6.4-8.2)
[2017-10-18 15:00] VITALS: BP 122/85; PULSE 56; TEMP 36.7; O2SAT 98
[2017-10-18] MEDS ORDERED: ONDA4TAB10 SL (16:26)
[2017-10-18] MEDS ORDERED: OXYC-57 PO (16:26)
[2017-10-18] MEDS ORDERED: OXYCODONE/ACETAMINOPHEN 5-325 TAB PO ONE (16:30)
[2017-10-18] MEDS ORDERED: NURSING VERBAL MED ORDER ONE (16:30)
--- NOTE | 2017-10-18 16:32 | Discharge Instructions ---
Discharge Instructions Date of Service Oct 18, 2017. Admission Reason for Admission: Anorexia, Ruq Abdominal Pain Discharge Discharge Diagnosis / Problem: RUQ abdominal pain, gastritis (mild inflammation in EGD) Discharge Goals Goal(s): Decrease discomfort, Improve function Activity Recommendations Activity Limitations: as noted below Lifting Limitations: none Exercise/Sports Limitations: as tolerated May Resume Sexual Activity: when tolerated Shower/Bathe: no limitations Driving or Machine Use: no limitations . Instructions / Follow-Up Instructions / Follow-Up Recommend bland diet in the next few weeks, slowly advance diet as tolerated in next few days You will be given prescriptions for Zofran as needed for nausea and Percocet as needed for pain. Percocet can cause constipation so drink plenty of water daily and may take OTC stool softener such as Colace. You did have some mild inflammation in your stomach on the EGD, avoid spicy foods, excessive alcohol, smoking, caffeine/soda products. If you develop severe pain, nausea, vomiting, inability to keep much food down you should go to emergency department. Follow-up with GI after your vacation, please call [facility] gastroenterology for follow up appointment Follow-up with Dr. Chua in surgical office in 1-2 weeks, please call office at [phone] to make an appointment. IF you develop pain over the weekend and would like gallbladder removed on Sunday please call office on Sunday to be seen in office on Sunday to schedule OR time on Sunday. Current Hospital Diet Patient's current hospital diet: Full Liquid Diet Discharge Diet Recommended Diet: Low Fat Diet Procedures Procedures Performed: Esophagogastroduodenoscopy W/Biopsies Pending Studies Studies pending at discharge: yes List of pending studies: EGD biopsies Medical Emergencies . Who to Call and When: Medical Emergencies: If at any time you feel your situation is an emergency, please call 911 immediately. . Non-Emergent Contact Non-Emergency issues call your: Primary Care Provider, Surgeon Call Non-Emergent contact if: you have a fever, temperature is above 101, your pain is not controlled, your pain is worsening, your pain is unusual for you . "Provider Documentation" section prepared by Zaida Rowley. . [place] Drug Monitoring Program Search Results: patient reviewed within database, no issues identified
[2017-10-18 16:38] VITALS: BP 122/85; PULSE 56; TEMP 36.7; O2SAT 98
--- NOTE | 2017-10-18 16:41 | Surgery Progress Note ---
Surgery Progress Note Date of Service Oct 18, 2017. Subjective Post OP Day: HD # 1 would like to go home still having nausea and pain but not as severe Zofran helped with nausea EGD showed some erythema in the antrum, biopsies taken, no evidence of ulcer HIDA scan with normal EF of 96%, however patient did develop exact symptoms of pain and nausea with injection during HIDA scan. No evidence of cystic duct obstruction Objective Vital Signs: Date Time Temp Pulse Resp B/P (MAP) Pulse Ox O2 Delivery O2 Flow Rate FiO2 10/18/17 16:10 Room Air 10/18/17 15:00 36.7 56 18 122/85 (97) 98 Room Air 10/18/17 11:55 61 16 119/77 (91) 98 Room Air 10/18/17 11:40 63 16 127/89 (102) 98 Room Air 10/18/17 11:25 72 16 131/85 (100) 99 Room Air 10/18/17 10:14 36.8 61 18 123/79 (94) 99 Room Air 10/18/17 08:16 Room Air 10/18/17 07:36 36.7 60 18 132/66 (88) 97 Room Air 10/17/17 23:20 Room Air 10/17/17 22:52 36.8 67 16 124/77 (93) 96 Room Air General Appearance: WD/WN, no apparent distress Head: normocephalic, atraumatic Neck: trachea midline Respiratory/Chest: no respiratory distress, no accessory muscle use Abdomen: non distended, soft, no organomegaly, no pulsatile mass, + tenderness (RUQ) Laboratory Results: Results Past 24 Hours Test 10/18/17 12:55 Range/Units White Blood Count 6.61 4.8-10.8 K/uL Red Blood Count 3.92 4.2-5.4 M/uL Hemoglobin 12.9 12.0-16.0 g/dL Hematocrit 37.4 37-47 % Mean Corpuscular Volume 95.4 80-100 fL Mean Corpuscular Hemoglobin 32.9 25-34 pg Mean Corpuscular Hemoglobin Concent 34.5 32-36 g/dl RDW Standard Deviation 43.9 36.4-46.3 fL RDW Coefficient of Variation 12.7 11.5-14.5 % Platelet Count 211 130-400 K/uL Mean Platelet Volume 8.9 7.4-10.4 fL Sodium Level 138 136-145 mmol/L Potassium Level 3.9 3.5-5.1 mmol/L Chloride Level 105 98-107 mmol/L Carbon Dioxide Level 29 21-32 mmol/L Anion Gap 4.0 3-11 mmol/L Blood Urea Nitrogen 9 7-18 mg/dl Creatinine 0.57 0.60-1.20 mg/dl Est Creatinine Clear Calc Drug Dose 136.8 ml/min Estimated GFR () 131.6 Estimated GFR (Non- 113.5 BUN/Creatinine Ratio 15.5 10-20 Random Glucose 95 70-99 mg/dl Calcium Level 8.1 8.5-10.1 mg/dl Total Bilirubin 0.8 0.2-1 mg/dl Aspartate Amino Transf (AST/SGOT) 15 15-37 U/L Alanine Aminotransferase (ALT/SGPT) 20 12-78 U/L Alkaline Phosphatase 36 45-117 U/L Total Protein 6.5 6.4-8.2 gm/dl Albumin 3.6 3.4-5.0 gm/dl Globulin 2.9 2.5-4.0 gm/dl Albumin/Globulin Ratio 1.2 0.9-2 Assessment & Plan RUQ abdominal pain with associated nausea -no leukocytosis, LFTS within normal limits - HIDA scan EF 96%, no cystic duct obstruction - EGD showed mild erythema of stomach but no ulcer disease Plan: No acute indication for laparoscopic cholecystectomy. Patient may have minute sludge causing biliary colic?? Recommend low fat/bland diet for the next few weeks, if no improvement may need outpatient EUS and or laparoscopic cholecystectomy will send home with PO Percocet PO Zofran as needed for pain and nausea respectively. follow up surgery office and GI in [address] Chua has seen and examined patient, agrees with above
--- NOTE | 2017-10-19 10:32 | Discharge Summary ---
Discharge Summary Dates Admission Date / Time: Oct 17, 2017 at 11:46 Discharge Date: Oct 18, 2017 Dispostion / Condition Discharge Disposition: Home Condition at Discharge: Good Principal Diagnosis (1) RUQ abdominal pain (2) Anorexia Problem List (1) Hypothyroidism (2) Hypertension (3) Endometriosis (4) Kidney stones Consultations / Procedures Consultations: Gastroenterology Procedures: EGD with biopsies Vaccinations: None Pending Studies / Follow-Up EGD biopsies, to be reviewed in follow-up Medication Reconciliation New Medications: Ondasetron Odt (Zofran Odt) 4 Mg Tab 4 MG SL Q6H for Nausea, #30 TAB Oxycodone/Acetaminophen 5MG/325MG (Percocet 5MG/325MG) Tab 1-2 TABLETS PO Q4H PRN for Pain, #30 TAB Continued Medications: Hydrochlorothiazide (Hydrochlorothiazide) 12.5 Mg Tab 1 TAB PO DAILY, TAB 3 Refills Levothyroxine Sodium (Levothyroxine Sodium) 25 Mcg Tab 1 TAB PO DAILY, TAB 3 Refills Admission HPI Per the Admitting provider: Johs is a pleasant 42-year-old female who presented to the emergency room today with complaint of right upper quadrant abdominal pain that began Sunday evening. She describes the pain as in the right upper quadrant and midline with radiation around her right side to her back. She states the pain woke her up at 4 AM on Sunday. Sharp in nature rated 8 out of 10. States the pain at this intensity would last for a couple hours and then slightly improved. She noticed that this pain would mostly occur at nighttime and wakes her up in the evening. Not necessarily after eating. States she eats pretty healthy no changes in her diet recently. She did notice subjective fever however did not take her temperature. Had associated chills and sweats following ibuprofen for presumed fever. Associated nausea and some vomiting as well as diarrhea. Last bowel movement was 2 days ago. Josh states that she was in her normal state of health prior to Sunday. She is very active and usually does not complain much of pain. She was unsure if she was having flulike symptoms however she notes that the pain has not significantly improved since Sunday. Unable to take much in by mouth. She denies of any chest pain, shortness of breath, difficulty breathing, changes in bowel habits, blood in stools, black tarry stools, heartburn, reflux, changes in urination, blood in the urine, dysuria. She has a history of kidney stones in the past but states this pain is different in quality. She also has history of endometriosis in which she has had for 5 diagnostic laparoscopies, last being in 1993. No problems with endometriosis since. Her twin sister is present during examination and states her sister does not complain much of pain. She knew something was wrong due to the constant pain since Sunday. Emergency room workup included labs no leukocytosis. CMP completely within normal limits except for slightly low potassium at 3.2. CT scan of the abdomen and pelvis with IV contrast only showed no acute intra-abdominal or pelvic findings. Right upper quadrant ultrasound showed no findings of gallstones or evidence of gallbladder wall thickening or pericholecystic fluid common bile duct measuring 0.4 cm in diameter. Single view chest x-ray within normal limits she also had troponin which was within normal limits and EKG which just showed sinus bradycardia. Admission Exam Per the Admitting provider: General Appearance: WD/WN, no apparent distress Head: normocephalic, atraumatic Eyes: sclerae normal ENT: hearing grossly normal Neck: trachea midline Respiratory/Chest: lungs clear, normal breath sounds, no respiratory distress, no accessory muscle use Cardiovascular: regular rate, rhythm, no murmur Abdomen/GI: normal bowel sounds, soft, no organomegaly, no pulsatile mass, + tenderness (RUQ on deep palpation, negative Hester's sign, no involuntary guarding, rebound, or peritonitis) Back: normal inspection Extremities/Musculoskelatal: no pedal edema Neurologic/Psych: alert, normal mood/affect, oriented x 3 Skin: normal color, warm/dry, no rash Hospital Course (1) RUQ abdominal pain Patient was admitted to the medical/surgical floor under observation. IV fluids , IV pain medication as needed, IV Zofran as needed for nausea, activity as tolerated, and a HIDA scan with ejection fraction were ordered. Also obtain a gastroenterology consult for further evaluation. Patient was evaluated by GI and upper endoscopy was planned for the next morning. HIDA scan was unable to be obtained until 8 AM the following day. Therefore, diet was advanced to full liquid diet and ordered n.p.o. after midnight. Patient underwent HIDA scan which showed a normal ejection fraction of 96% with no evidence of cystic duct obstruction. Patient did have reproduction of her symptoms however with injection during HIDA scan. EGD showed some mild erythema of the antrum and biopsies were taken however no evidence of peptic ulcer disease. Patient was evaluated in the afternoon on hospital day #1. She continued to have some nausea and abdominal pain however felt slightly improved. Labs show no leukocytosis and LFTs and total bilirubin within normal limits. Patient was discharged home on hospital day #1 in stable condition. She was advised to follow-up in surgical office if her pain continued or worsen. Discussion of possible outpatient cholecystectomy versus further GI evaluation was discussed. Patient understood. Discharge Instructions as given to patient Copies To Primary Care Provider: No Doctor, Assigned.
== END 2017-10-18 17:50 | disposition home or self-care (01) ==
LOC: C.EDB 06:28 → C.MSW 11:46 → CANRESERV 12:12 → ENRESERV 12:12
PROVIDERS: ADMIT Surgery; ATTEND Surgery
DX: R10.11 Right upper quadrant pain (principal); R63.0 Anorexia; E03.9 Hypothyroidism, unspecified; I10 Essential (primary) hypertension; N80.9 Endometriosis, unspecified; Z87.442 Personal history of urinary calculi; Z88.0 Allergy status to penicillin

== ENCOUNTER 2019-12-18 10:50 | Inpatient (IN) ==
[2019-12-18] MEDS ORDERED: ONDANSETRON INJ 2 MG/ML 2 ML VIAL IV STA (11:10)
[2019-12-18] MEDS ORDERED: MoRPHine SULFATE 4 MG/ML 1 ML CARP\\VIAL IV STA (11:10)
[2019-12-18] MEDS ORDERED: SODIUM CHLORIDE 0.9% 1000ML 1,000 ML IV ONE (11:10)
[2019-12-18] MEDS ORDERED: cefTRIAXone SODIUM 2,000 MG/70 ML BAG IV STA (11:11)
[2019-12-18 11:23] LABS: Basophils # (auto) 0.02 K/uL (0-0.2); Basophils % (auto) 0.2 %; Eosinophils # (auto) 0.03 K/uL (0-0.5); Eosinophils % (auto) 0.3 %; Hematocrit (blood only) 43.1 % (37-47); Hemoglobin 14.3 g/dL (12.0-16.0); Immature Granulocytes # (auto) 0.02 K/uL (0.00-0.02); Immature Granulocytes % (auto) 0.2 %; Lymphocytes # (auto) 0.99 K/uL (1.2-3.4); Lymphocytes % (auto) 9.7 %; Mean Corpuscular Hemoglobin 31.7 pg (25-34); Mean Corpuscular Hgb Conc 33.2 g/dL (32-36); Mean Corpuscular Volume 95.6 fL (80-100); Mean Platelet Volume 9.5 fL (7.4-10.4); Monocytes # (auto) 0.22 K/uL (0.11-0.59); Monocytes % (auto) 2.2 %; Neutrophils # (auto) 8.92 K/uL (1.4-6.5); Neutrophils % (auto) 87.4 %; Platelet Count 218 K/uL (130-400); RDW Coefficient of Variation 13.2 % (11.5-14.5); RDW Standard Deviation 45.9 fL (36.4-46.3); Red Blood Count 4.51 M/uL (4.2-5.4)
[2019-12-18 11:26] LABS: Appearance Urine Cloudy (Clear); Bacteria Urine Automated 4+ (Negative); Bilirubin Urine Negative (Negative); Blood Urine 1+ (Negative); Color Urine Dark Yellow; Epithelial Cell Urine Auto >30 /lpf (0-5); Glucose Urine UA Negative (Negative); Ketones Urine 1+ (Negative); Leukocyte Esterase Urine 1+ (Negative); Nitrite Urine Positive (Negative); Protein Urine 1+ (Negative); Specific Gravity Urine 1.027 (1.000-1.030); Urobilinogen Urine Negative (Negative); WBC Urine Automated >30 /hpf (0-5); pH Urine 5.5 (4.5-7.5)
--- NOTE | 2019-12-18 11:28 | Emergency Department Note ---
History of Present Illness General Chief complaint: Kidney Stone Stated complaint: BACK PAIN Source: patient Mode of arrival: ambulatory Limitations: no limitations History of Present Illness Provider complaint: "right kidney pain" Maximum Pain Intensity: 10 This 44-year-old female patient with significant past medical history of kidney stones requiring stenting presents to the emergency department today, ambulatory, complaining of "right kidney pain". The patient states she has a long history of stones and stent placement, but this was in [place] several years ago. 2 days ago, the patient began experiencing pain in her right kidney. She states she has also been experiencing intermittent chills and nausea. She has been taking ibuprofen without significant improvement. This morning upon awakening, the pain significantly worsened, leading to nausea and vomiting. The patient states she is unclear whether or not she is having a fever. She states yesterday she was unable to urinate after the afternoon, and her urine sample here in the ED today was the first time since then that she has gone. She denies any hematuria, pyuria, urinary frequency, or urinary hesitancy. She denies any abdominal pain, chest pain, dyspnea. Symptoms consistent with kidney stones she has experienced in the past. The patient rates her pain a 10/10 and describes it as sharp. Home Medications Home Medications Medication Instructions Recorded Confirmed Type No Known Home Medications 12/18/19 12/18/19 History Allergies Allergy/AdvReac Type Severity Reaction Status Date / Time Penicillins Allergy Unknown HIVES Verified 12/18/19 11:34 Past Med/Surg History Surgical History H/O tubal ligation History of laparoscopy Reports "nicked an artery" requiring 4 pints of blood -- approx age 12 History of nephrolithotomy with removal of calculi Family History (Updated 06/23/19 @ 12:12 by JAI Fuller) Aunt Breast cancer Myocardial infarction Grandfather (Paternal) Lung cancer Grandmother (Paternal) Breast cancer Sister Breast cancer Half-Sister Denies family history of Ovarian cancer Prostate cancer Colorectal cancer Social History Preferred Language: Romanian Communication Ability: Effective Beliefs That Will Affect Care: None marital status: Current Living Situation: Alone current occupational status: employed Other Information That Helps Us Care for You: No Feels Safe at Home: Yes Safety Concerns: Feels Safe At This Time Smoking Status: Former smoker Number of Years Since Quit: 20 ; Hx Alcohol Use: Yes Alcohol type: wine Alcohol Intake Frequency: Weekly Alcohol Intake Frequency Comment: 3 days a week Hx Substance Use: No Dental Care, Regularly: Yes Physical Activity Frequency: Daily Seatbelt Use: always Review of Systems A total of 10 systems reviewed and were otherwise negative Physical Exam Vital Signs Vital Signs - 24 hr 12/18/19 10:52 12/18/19 11:10 12/18/19 12:50 Temperature 37.1 C Temperature Source Oral Pulse Rate 97 H Pulse Rate [Apical] 102 H Respiratory Rate 20 18 Blood Pressure 198/118 H Blood Pressure [Left Arm] 137/86 Blood Pressure Mean 144 Blood Pressure Mean [Left Arm] 103 Pulse Oximetry 99 98 97 Oxygen Delivery Method Room Air Room Air Room Air Sepsis Recent Fever Within 48 Hours No Sepsis New/Unexplained Change in Mental Status No Sepsis Action Taken by Nursing No Action Required VITALS: Vitals are noted on the nurse's note and reviewed by myself. Patient is hypertensive. No tachycardia, afebrile, and O2 saturation 99%. GENERAL: This is a 44-year-old white female, in no acute distress, but actively vomiting due to pain, nondiaphoretic, well-developed well-nourished. SKIN: The skin was without rashes, erythema, edema, or bruising. There is no tenting of the skin. Capillary refill less than 2 seconds. HEAD: Normocephalic atraumatic. EYES: Conjunctivae without injection, sclerae without icterus. NOSE: Patent, turbinates without inflammation or discharge. No sinus tenderness. MOUTH: Mucous membranes moist. Tonsils are not enlarged. Pharynx without erythema or exudate. Uvula midline. Airway patent. Tongue does not deviate. NECK: Supple without nuchal rigidity. No lymphadenopathy. No thyromegaly. Cervical spine is nontender. No JVD. HEART: Regular rate and rhythm without murmurs gallops or rubs. LUNGS: Clear to auscultation bilaterally without wheezes, rales or rhonchi. No retractions or accessory muscle use. ABDOMEN: Positive bowel sounds x 4. Normal tympanic percussion. Soft, nontender, without masses or organomegaly. Hester sign negative. No guarding or rebound tenderness. No CVA tenderness bilaterally. MUSCULOSKELETAL: No muscle atrophy, erythema, or edema noted. Full range of motion without joint tenderness in all extremities. No tenderness to palpation. Normal gait. Strength 5/5 throughout. NEURO: Patient was alert and oriented to person place and time. No focal neurological deficits. Course Course The patient was seen and evaluated as above. An order was placed for continuous cardiac monitoring. The monitor shows a sinus tachycardia at a rate of 102 bpm. IV access obtained, labs drawn. Patient medicated with IV fluids, morphine, Zofran, and Rocephin. Patient is complaining of ongoing pain. She was given 1 mg IV Dilaudid. Imaging performed and reviewed by myself and radiologist as noted. Labs reviewed by myself. I discussed the case with JAI Lamas with urology. She recommends placing the patient n.p.o. status at midnight in case she will require stent placement tomorrow. She was agreeable with the admission and antibiotic treatment. I discussed the findings with the patient at bedside. I did recommend admission. The patient was agreeable I discussed case with the manager environmental. I discussed the case with Dr. Albright. [facility] hospitalist. He did agree to see and evaluate the patient for admission. Administered Medications Discontinued Medications Hydromorphone HCl (Dilaudid) 1 mg IV NOW STA Stop: 12/18/19 12:20 Last Admin: 12/18/19 12:21 Dose: 1 mg Documented by: [id number] Hydromorphone HCl (Dilaudid) 1 mg IV NOW STA Stop: 12/18/19 13:33 Last Admin: 12/18/19 13:41 Dose: 1 mg Documented by: [id number] Sodium Chloride (Nss 1000ml) 1,000 mls @ 999 mls/hr IV .Q1H1M ONE Stop: 12/18/19 12:10 Last Infusion: 12/18/19 12:17 Dose: 0 mls/hr Documented by: [id number] Admin: 12/18/19 11:16 Dose: 999 mls/hr Documented by: [id number] Ceftriaxone Sodium (Rocephin) 2,000 mg in 70 mls @ 140 mls/hr IV NOW STA Stop: 12/18/19 11:40 Last Infusion: 12/18/19 12:47 Dose: 0 mls/hr Documented by: [id number] Admin: 12/18/19 12:07 Dose: 140 mls/hr Documented by: [id number] Morphine Sulfate (Morphine Sulfate) 4 mg IV NOW STA Stop: 12/18/19 11:11 Last Admin: 12/18/19 11:15 Dose: 4 mg Documented by: [id number] Ondansetron HCl (Zofran) 4 mg IV NOW STA Stop: 12/18/19 11:11 Last Admin: 12/18/19 11:16 Dose: 4 mg Documented by: [id number] Medical Decision Making Differential Diagnosis Renal colic, UTI, appendicitis, diverticulitis, mesenteric ischemia, aortic pathology, infections, inflammatory bowel disease, PUD, biliary pathology, as well as other pathologies. Home Medications Current Medication List: was personally reviewed by me Laboratory Data Attestation: I reviewed the patient's lab results. No leukocytosis, anemia, thrombocytopenia. Renal, hepatic function, and electrolytes without significant abnormality. Coags normal. Lipase 95. Lactate 1.5. hCG negative. Urinalysis positive for nitrites, 4+ bacteria, ketones, blood, and white blood cells. Unfortunately, does appear to be a contaminated specimen. Result diagrams: 12/18/19 11:05 12/18/19 11:05 Lab Results 12/18/19 12/18/19 12/18/19 Range/Units 11:05 11:05 11:05 WBC 10.20 (4.8-10.8) K/uL RBC 4.51 (4.2-5.4) M/uL Hgb 14.3 (12.0-16.0) g/dL Hct 43.1 (37-47) % MCV 95.6 (80-100) fL MCH 31.7 (25-34) pg MCHC 33.2 (32-36) g/dL RDW Std Deviation 45.9 (36.4-46.3) fL RDW Coeff of Alex 13.2 (11.5-14.5) % Plt Count 218 (130-400) K/uL MPV 9.5 (7.4-10.4) fL Immature Gran % (Auto) 0.2 % Neut % (Auto) 87.4 % Lymph % (Auto) 9.7 % [place] % (Auto) 2.2 % Eos % (Auto) 0.3 % Baso % (Auto) 0.2 % Immature Gran # (Auto) 0.02 (0.00-0.02) K/uL Neut # (Auto) 8.92 H (1.4-6.5) K/uL Lymph # (Auto) 0.99 L (1.2-3.4) K/uL [place] # (Auto) 0.22 (0.11-0.59) K/uL Eos # (Auto) 0.03 (0-0.5) K/uL Baso # (Auto) 0.02 (0-0.2) K/uL PT 11.0 (9.0-12.0) Seconds INR 1.0 (0.9-1.1) APTT 31.3 H (21.0-31.0) Seconds PTT Ratio 1.1 Sodium 132 L (136-145) mmol/L Potassium 3.6 (3.5-5.1) mmol/L Chloride 99 (98-107) mmol/L Carbon Dioxide 27 (21-32) mmol/L Anion Gap 6.0 (3-11) BUN 15 (7-18) mg/dl Creatinine 1.08 (0.6-1.2) mg/dl Est Cr Clr Drug Dosing Not Reportable Est GFR ( Amer) 71.8 Est GFR (Non-Af Amer) 61.9 BUN/Creatinine Ratio 13.5 (10-20) Glucose 125 H (70-99) mg/dl Lactate (0.4-2.0) mmol/L Calcium 9.4 (8.5-10.1) mg/dl Total Bilirubin 1.1 H (0.2-1) mg/dl AST 22 (15-37) U/L ALT 35 (12-78) U/L Alkaline Phosphatase 71 (45-117) U/L Total Protein 8.5 H (6.4-8.2) gm/dl Albumin 4.1 (3.4-5.0) gm/dl Globulin 4.4 H (2.5-4.0) gm/dl Albumin/Globulin Ratio 0.9 (0.9-2) Lipase 95 (73-393) U/L HCG, Qual (Negative) Urine Color Urine Appearance (Clear) Urine pH (4.5-7.5) Ur Specific [place] (1.000-1.030) Urine Protein (Negative) Urine Glucose (UA) (Negative) Urine Ketones (Negative) Urine Blood (Negative) Urine Nitrite (Negative) Urine Bilirubin (Negative) Urine Urobilinogen (Negative) Ur Leukocyte Esterase (Negative) Urine WBC (Auto) (0-5) /hpf Urine RBC (Auto) (0-4) /hpf U Hyaline Cast (Auto) (0-5) /lpf U Epithel Cells (Auto) (0-5) /lpf Urine Bacteria (Auto) (Negative) 12/18/19 12/18/19 12/18/19 Range/Units 11:05 11:05 12:05 WBC (4.8-10.8) K/uL RBC (4.2-5.4) M/uL Hgb (12.0-16.0) g/dL Hct (37-47) % MCV (80-100) fL MCH (25-34) pg MCHC (32-36) g/dL RDW Std Deviation (36.4-46.3) fL RDW Coeff of Alex (11.5-14.5) % Plt Count (130-400) K/uL MPV (7.4-10.4) fL Immature Gran % (Auto) % Neut % (Auto) % Lymph % (Auto) % [place] % (Auto) % Eos % (Auto) % Baso % (Auto) % Immature Gran # (Auto) (0.00-0.02) K/uL Neut # (Auto) (1.4-6.5) K/uL Lymph # (Auto) (1.2-3.4) K/uL [place] # (Auto) (0.11-0.59) K/uL Eos # (Auto) (0-0.5) K/uL Baso # (Auto) (0-0.2) K/uL PT (9.0-12.0) Seconds INR (0.9-1.1) APTT (21.0-31.0) Seconds PTT Ratio Sodium (136-145) mmol/L Potassium (3.5-5.1) mmol/L Chloride (98-107) mmol/L Carbon Dioxide (21-32) mmol/L Anion Gap (3-11) BUN (7-18) mg/dl Creatinine (0.6-1.2) mg/dl Est Cr Clr Drug Dosing Est GFR ( Amer) Est GFR (Non-Af Amer) BUN/Creatinine Ratio (10-20) Glucose (70-99) mg/dl Lactate 1.5 (0.4-2.0) mmol/L Calcium (8.5-10.1) mg/dl Total Bilirubin (0.2-1) mg/dl AST (15-37) U/L ALT (12-78) U/L Alkaline Phosphatase (45-117) U/L Total Protein (6.4-8.2) gm/dl Albumin (3.4-5.0) gm/dl Globulin (2.5-4.0) gm/dl Albumin/Globulin Ratio (0.9-2) Lipase (73-393) U/L HCG, Qual Negative (Negative) Urine Color Dark Yellow Urine Appearance Cloudy A (Clear) Urine pH 5.5 (4.5-7.5) Ur Specific [place] 1.027 (1.000-1.030) Urine Protein 1+ H (Negative) Urine Glucose (UA) Negative (Negative) Urine Ketones 1+ H (Negative) Urine Blood 1+ H (Negative) Urine Nitrite Positive A (Negative) Urine Bilirubin Negative (Negative) Urine Urobilinogen Negative (Negative) Ur Leukocyte Esterase 1+ H (Negative) Urine WBC (Auto) >30 H (0-5) /hpf Urine RBC (Auto) 5-10 H (0-4) /hpf U Hyaline Cast (Auto) 10-30 H (0-5) /lpf U Epithel Cells (Auto) >30 H (0-5) /lpf Urine Bacteria (Auto) 4+ H (Negative) Imaging Data Radiologist's Impression: ABDOMEN AND PELVIS CT WITHOUT CONTRAST CT DOSE: 673.72 mGy.cm HISTORY: Acute right-sided flank pain right flank pain TECHNIQUE: Multiaxial CT images of the abdomen and pelvis were performed without contrast. A dose lowering technique was utilized adhering to the principles of ALARA. COMPARISON STUDY: CT abdomen and pelvis 10/17/2017 FINDINGS: Clear lung bases. No pneumatosis or pneumoperitoneum. Imaged inferior cardiac chambers are unremarkable. Limited evaluation of the solid abdominal organs without the use of IV contrast. Hepatic steatosis. No hepatic mass lesion or evidence of cirrhosis. The spleen, pancreas, gallbladder and adrenal glands are unremarkable. There are least 3 nonobstructing left-sided renal calculi measuring up to 3 mm. There are greater than 20 nonobstructing calculi of the ri ght kidney measuring up to approximately 6 mm. There is mild right-sided hydroureteronephrosis with reactive perinephric and periureteral stranding secondary to an obstructing 5 x 4 x 7 mm calculus of the right ureter which is noted at the level of the superior endplate of L4. Partially decompressed urinary bladder. Uterus and adnexa are unremarkable. Retroaortic left renal vein. Mild calcified plaque of the abdominal aorta. There is no adenopathy. No bowel obstruction or bowel wall thickening. Scattered hyperdense material noted within loops of pelvic small bowel. Mild fecal retention. The appendix appears normal. Soft tissues are unremarkable. Bones appear intact. IMPRESSION: 1. Mild right-sided hydroureteronephrosis secondary to an obstructing 5 x 4 x 7 mm calculus of the proximal right ureter at the level of the superior endplate L4. 2. Right greater than left nonobstructing bilateral nephrolithiasis. 3. No bowel obstruction or bowel wall thickening. Normal appendix. 4. Hepatic steatosis. ACT 112: Negative or not required by law. The above report was generated using voice recognition software. It may contain grammatical, syntax or spelling errors. Electronically signed by: Shay Tang M.D. 12/18/2019 12:32 PM Blood Pressure Blood Pressure Findings: Elevated blood pressure Blood Pressure Disposition: elevated BP felt to be situational MDM Narrative This 44-year-old female patient presents to the emergency department for right flank pain. The patient does have a known history of kidney stones and has required stents in the past. She is complaining of subjective fevers, chills, and is actively vomiting during my examination. She is afebrile on initial evaluation. Labs consistent with UTI with positive nitrites and bacteria. CT imaging does show an obstructing proximal right ureteral stone which is 5 x 4 x 7 mm. The patient does have some right-sided hydroureteronephrosis with reactive perinephric and periureteral stranding. I am concerned for pyelonephritis in the setting of ureteral stone. The patient has required multiple rounds of narcotic analgesics while here in the department. She was also started on IV fluids and ceftriaxone. I did consult with urology who will plan to stent that the patient if she does not pass the stone. The patient will be admitted to the hospitalist service for ongoing management. Please see hospitalist and urology dictation regarding ongoing management and care of this patient. The chart was completed utilizing [employer] voice recognition software. Grammatical errors, random word insertions, pronoun errors, and incomplete sentences are an occasional consequence of this system due to software limitations, ambient noise, and hardware issues. Any formal questions or concerns about the content, text, or information contained within the body of this dictation should be directly addressed to the provider for clarification. Impression & Plan Right ureteral calculus, Renal colic, Pyelonephritis, Fever and chills Discharge Plan Visit Data Chief Complaint: Kidney Stone Stated Complaint: BACK PAIN Other Complaint: Back Injury/Pain ED Provider: Keeley Johnson ED Midlevel Provider: Lucila Casillas Discharge Problem: Right ureteral calculus, Renal colic, Pyelonephritis, Fever and chills Patient Disposition: Admitted As Inpatient Discharge Instructions Interventions: ED Discharge Assessment Last Done: 12/18/19 13:46 Forms Stand Alone Forms: [facility], Virtual Emergency Department, Important Visit Information Prescriptions Prescriptions: No Action No Known Home Medications RF: 0 Referrals Referrals: Lili Friedman MD [Primary Care Provider] -
[2019-12-18 11:34] LABS: Partial Thromboplastin Ratio 1.1; Partial Thromboplastin Time 31.3 Seconds (21.0-31.0)
[2019-12-18 11:39] LABS: Alanine Aminotransferase 35 U/L (12-78); Albumin Level 4.1 gm/dl (3.4-5.0); Aspartate Aminotransferase 22 U/L (15-37); BUN Creatinine Ratio 13.5 (10-20); Blood Urea Nitrogen 15 mg/dl (7-18); Calcium 9.4 mg/dl (8.5-10.1); Carbon Dioxide 27 mmol/L (21-32); Chloride 99 mmol/L (98-107); Est GFR (African American) 71.8; Est GFR (Non-African American) 61.9; Glucose 125 mg/dl (70-99); Lipase 95 U/L (73-393); Potassium 3.6 mmol/L (3.5-5.1); Sodium 132 mmol/L (136-145)
[2019-12-18 11:42] LABS: Albumin Globulin Ratio 0.9 (0.9-2); Alkaline Phosphatase 71 U/L (45-117); Bilirubin,Total 1.1 mg/dl (0.2-1); Globulin 4.4 gm/dl (2.5-4.0); Total Protein 8.5 gm/dl (6.4-8.2)
[2019-12-18 11:49] LABS: Pregnancy Test, Serum Negative (Negative)
[2019-12-18] MEDS ORDERED: HYDROmorphone INJ 1 MG/ML SYRINGE IV STA ×2 (12:19→13:32)
--- NOTE | 2019-12-18 12:34 | CT Scan Report ---
ABDOMEN AND PELVIS CT WITHOUT CONTRAST CT DOSE: 673.72 mGy.cm HISTORY: Acute right-sided flank pain right flank pain TECHNIQUE: Multiaxial CT images of the abdomen and pelvis were performed without contrast. A dose lo wering technique was utilized adhering to the principles of ALARA. COMPARISON STUDY: CT abdomen and pelvis 10/17/2017 FINDINGS: Clear lung bases. No pneumatosis or pneumoperitoneum. Imaged inferior cardiac chambers are unremarkab le. Limited evaluation of the solid abdominal organs without the use of IV contrast. Hepatic steatosi s. No hepatic mass lesion or evidence of cirrhosis. The spleen, pancreas, gallbladder and adrenal gla nds are unremarkable. There are least 3 nonobstructing left-sided renal calculi measuring up to 3 mm. There are greater than 20 nonobstructing calculi of the right kidney measuring up to approximately 6 mm. There is mild right-sided hydroureteronephrosis with reactive perinephric and periureteral stran ding secondary to an obstructing 5 x 4 x 7 mm calculus of the right ureter which is noted at the leve l of the superior endplate of L4. Partially decompressed urinary bladder. Uterus and adnexa are unrem arkable. Retroaortic left renal vein. Mild calcified plaque of the abdominal aorta. There is no adeno juan pablo. No bowel obstruction or bowel wall thickening. Scattered hyperdense material noted within loops of pe lvic small bowel. Mild fecal retention. The appendix appears normal. Soft tissues are unremarkable. B ones appear intact. IMPRESSION: 1. Mild right-sided hydroureteronephrosis secondary to an obstructing 5 x 4 x 7 mm calculus of the pr oximal right ureter at the level of the superior endplate L4. 2. Right greater than left nonobstructing bilateral nephrolithiasis. 3. No bowel obstruction or bowel wall thickening. Normal appendix. 4. Hepatic steatosis. ACT 112: Negative or not required by law. The above report was generated using voice recognition software. It may contain grammatical, syntax o r spelling errors. Electronically signed by: Shay Tang M.D. 12/18/2019 12:32 PM
[2019-12-18] MEDS ORDERED: ONDANSETRON INJ 2 MG/ML 2 ML VIAL IV PRN ×2 (14:10→16:59)
[2019-12-18] MEDS: SODIUM CHLORIDE 0.9% 1000ML 1,000 ML IV SCH ×2 (14:29→22:32)
--- NOTE | 2019-12-18 14:46 | Urology Consultation ---
Date of Consultation December 18, 2019 Assessment & Plan (1) Right ureteral calculus: Assessment Right renal colic secondary to a proximal right ureteral calculus I did review her CT scan which shows multiple right renal stones also a proximal right ureteral calculus with some hydronephrosis Since the patient has a fever currently and is experiencing significant pain we will proceed to the OR for a cystoscopy and stent placement in the right kidney. Again I did discuss the risks and benefits with her and she agrees to proceed. History of Present Illness Attending Physician: Abisai Albright, History of Present Illness Patient is a 44-year-old white female with a past history of nephrolithiasis who presented to the emergency room today complaining of right flank pain. She has had pain for approximately 2 days. Also had some intermittent chills and nausea but no actual fever or vomiting. She has been using ibuprofen but it has not been effective denies any dysuria hematuria or other voiding problems. In the emergency room she was given pain medication but this was not effective she still having rather severe colic. Because of the intractable pain I think she needs to have a stent placed today she has had stents in the past I discussed the procedure with her including the risks of bleeding infection injury to the urethra bladder or ureter failure to get a stent in place and risk from the anesthetics. I answered all of her questions and she would like to have the stent placed Allergies Allergy/AdvReac Type Severity Reaction Status Date / Time Penicillins Allergy Unknown HIVES Verified 12/18/19 11:34 Home Medications Home Medications Medication Instructions Recorded Confirmed Type No Known Home Medications 12/18/19 12/18/19 History Patient History Surgical History H/O tubal ligation History of laparoscopy Reports "nicked an artery" requiring 4 pints of blood -- approx age 12 History of nephrolithotomy with removal of calculi Family History (Updated 06/23/19 @ 12:12 by JAI Fuller) Aunt Breast cancer Myocardial infarction Grandfather (Paternal) Lung cancer Grandmother (Paternal) Breast cancer Sister Breast cancer Half-Sister Denies family history of Ovarian cancer Prostate cancer Colorectal cancer Social History Preferred Language: Romansh Communication Ability: Effective Beliefs That Will Affect Care: None marital status: Current Living Situation: Alone current occupational status: employed Other Information That Helps Us Care for You: No Feels Safe at Home: Yes Safety Concerns: Feels Safe At This Time Smoking Status: Former smoker Number of Years Since Quit: 20 ; Hx Alcohol Use: Yes Alcohol type: wine Alcohol Intake Frequency: Weekly Alcohol Intake Frequency Comment: 3 days a week Hx Substance Use: No Dental Care, Regularly: Yes Physical Activity Frequency: Daily Seatbelt Use: always Review of Systems Review of Systems: All systems reviewed & are unremarkable except as noted in HPI & below Physical Exam Physical Exam: Patient's current temperature is 39 C her vital signs are st able She is alert and oriented x3 She is well-developed well-nourished in moderate distress Lungs are clear to auscultation Cardiac shows a regular rate and without murmur Abdomen is soft nontender there are no masses She does have rather significant right flank pain. Extremities are without clubbing cyanosis or edema Results & Data Vital Signs (Past 12 Hours) Vital Signs Temp Pulse Pulse Pulse Resp BP BP 12/18/19 14:10 39 C H 104 H 18 149/92 H 12/18/19 12:50 102 H 18 137/86 12/18/19 11:10 12/18/19 10:52 37.1 C 97 H 20 198/118 H Pulse Ox 12/18/19 14:10 93 12/18/19 12:50 97 12/18/19 11:10 98 12/18/19 10:52 99 PG Care Time/CCT Total # of Minutes Spent Total Time Spent with Patient: Total time spent is greater than 50% in coordination of care (as documented) at patient's floor/unit and/or counseling patient: Coding Level of Care Code 52100 Inpt Consult Level 3 Diagnoses Right ureteral calculus N20.1
[2019-12-18] MEDS: OXYCODONE HCL IR 5 MG TAB (IMMEDIATE RELEASE) PO PRN ×2 (14:48→19:32)
[2019-12-18] MEDS ORDERED: fentaNYL citrate 100 MCG/2 ML VIAL ONE (15:36)
[2019-12-18] MEDS ORDERED: MIDAZOLAM HCL 1 MG/ML 2ML VIAL ONE (15:36)
[2019-12-18] MEDS ORDERED: OXYCODONE HCL IR 5 MG TAB (IMMEDIATE RELEASE) PO STA (15:52)
--- NOTE | 2019-12-18 16:11 | History & Physical Bridge Note ---
Date of Service December 18, 2019 History & Physical Bridge Note I have examined the patient, reviewed the History & Physical and in the interval since the performance of the History & Physical I have noted the following changes of clinical significance: no changes noted
--- NOTE | 2019-12-18 16:11 | Anesthesiology Consultation ---
Date of Service December 18, 2019 Assessment & Plan Chart Review Chart Review: Acceptable Risk for Surgery and Patient NOT seen in Pre Admission Testing Consults Requested none ASA ASA2E Proposed Anesthesia Anesthesia Type: General Risk / Benefits Reviewed With: PT / POA / Parent / Guardian, Accepts Plan and Informed Consent Obtained Additional Comments: no s/sx's covid History Surgery Operation Date: 12/18/19 15:30 Proposed Procedures p Cystoscopy, Right Stent Placement - Jose Ojeda MD Height/Weight Height: 5 ft 6 in Weight: 86 kg Allergies Allergy/AdvReac Type Severity Reaction Status Date / Time Penicillins Allergy Unknown HIVES Verified 12/18/19 11:34 Medications Home Medications Medication Instructions Recorded Confirmed Last Taken No Known Home Medications 12/18/19 12/18/19 Unknown Active Medications Generic Name Dose Route Start Last Admin Trade Name Freq PRN Reason Stop Dose Admin Sodium Chloride 1,000 mls @ 125 mls/hr 12/18/19 14:10 12/18/19 14:29 Nss 1000ml IV 01/17/20 14:09 125 mls/hr .Q8H KAELA Administration Oxycodone HCl 5 mg 12/18/19 14:10 12/18/19 14:48 Roxicodone Immediate Rel PO 01/01/20 14:09 5 mg Q4 PRN Administration Pain NPO Date Last Intake of Fluids: 12/18/19 Time Last Intake of Fluids: 05:00 Last Intake of Fluids Comment: sips of water with pills Date Last Intake of Solids: 12/16/19 Time Last Intake of Solids: 17:00 Past Medical History Medical History History of blood transfusion Hypertension Hypothyroidism (Chronic) Kidney stones (Resolved) Exercise / Class Metabolic Activity II 4-5 Yardwork/Stairs/Walk up hill Past Family History Family History Aunt Breast cancer Myocardial infarction Grandfather (Paternal) Lung cancer Grandmother (Paternal) Breast cancer Sister Breast cancer Half-Sister Denies family history of Ovarian cancer Prostate cancer Colorectal cancer Past Surgical History Surgical History H/O tubal ligation History of laparoscopy Reports "nicked an artery" requiring 4 pints of blood -- approx age 12 History of nephrolithotomy with removal of calculi Past Anesthesia History No Hx of Anesthesia Complications and No Family Hx of Anesthesia Complications History of PONV No Hx of PONV and No Hx of Motion Sickness Social History Smoking Status: Former smoker Hx Alcohol Use: Yes Alcohol type: wine alcohol intake frequency: a few times a week Hx Substance Use: No Physical Exam Vital Signs Last Vital Signs Temp 37.9 C H 12/18/19 15:45 Pulse 102 H 12/18/19 15:45 Resp 20 12/18/19 15:45 BP 137/85 12/18/19 15:45 Pulse Ox 96 12/18/19 15:45 Constitutional + obese ENMT Mouth: no dentition abnormality Thyromental Distance: < 3.5 Finger Breadths Mallampati Class: II Neck normal visual inspection and trachea midline; neck extension not limited Respiratory normal respiratory effort Auscultation: lungs clear to auscultation bilaterally Cardiovascular Rate/Rhythm: regular rate and regular rhythm Heart Sounds: no murmur Vessels: no carotid bruit Musculoskeletal Spine: normal cervical ROM Extremities: extremities normal to inspection Neurologic moves all extremities Motor/Sensory: no sensory deficit Psychiatric Orientation: alert and oriented x 3 Testing Laboratory Results 12/18/19 11:05 12/18/19 11:05 PT 11.0 Seconds (9.0-12.0) 12/18/19 11:05 INR 1.0 (0.9-1.1) 12/18/19 11:05 APTT 31.3 Seconds (21.0-31.0) H 12/18/19 11:05 Urine Color Dark Yellow 12/18/19 11:05 Urine Appearance Cloudy (Clear) A 12/18/19 11:05 Urine pH 5.5 (4.5-7.5) 12/18/19 11:05 Ur Specific [place] 1.027 (1.000-1.030) 12/18/19 11:05 Urine Protein 1+ (Negative) H 12/18/19 11:05 Urine Glucose (UA) Negative (Negative) 12/18/19 11:05 Urine Ketones 1+ (Negative) H 12/18/19 11:05 Urine Nitrite Positive (Negative) A 12/18/19 11:05 Ur Leukocyte Esterase 1+ (Negative) H 12/18/19 11:05 Urine WBC (Auto) >30 /hpf (0-5) H 12/18/19 11:05 Urine RBC (Auto) 5-10 /hpf (0-4) H 12/18/19 11:05 U Hyaline Cast (Auto) 10-30 /lpf (0-5) H 12/18/19 11:05 U Epithel Cells (Auto) >30 /lpf (0-5) H 12/18/19 11:05 Urine Bacteria (Auto) 4+ (Negative) H 12/18/19 11:05 Electrocardiogram Date: 12/18/19 Findings: + NSR @ (at 98;T wave abnlty;? infer. ischemia)
[2019-12-18] MEDS ORDERED: IOTHALAMATE MEGLUMINE II 17.2% 250 ML VIAL ONE (16:22)
[2019-12-18] MEDS ORDERED: PROPOFOL IV EMULSION 10 MG/ML 20 ML VIAL IV ONE (16:31)
[2019-12-18] MEDS ORDERED: LIDOCAINE HCL 2% 2 ML VIAL/AMP(20MG/ML) INFIL ONE (16:31)
[2019-12-18] MEDS ORDERED: ONDANSETRON INJ 2 MG/ML 2 ML VIAL ONE (16:32)
--- NOTE | 2019-12-18 16:53 | Post Operative Brief Note ---
PG Immediate Post Op with CF Date of Surgery December 18, 2019 Pre & Post Diagnosis Operation Date: 12/18/19 15:30 Pre-Op Diagnosis: Right ureteral stone Post-Op Diagnosis: Right ureteral stone I identified the patient and participated in the time-out.: Yes Procedure Operation Date: 12/18/19 15:30 Actual Procedures p Cystoscopy, Right Retrograde Pyelogram, Right Stent Placement(Right) - Jose Ojeda MD Surgeon Jose Ojeda MD Card Cutter Helper none Estimated Blood Loss 0 Findings Consistent with Post-Op Diagnosis
[2019-12-18] MEDS ORDERED: FLUMAZENIL 0.1 MG/1 ML 10 ML VIAL IV PRN (16:59)
[2019-12-18] MEDS ORDERED: NALOXONE HCL 0.4 MG/1 ML VIAL/CARP IV PRN (16:59)
[2019-12-18] MEDS ORDERED: LABETALOL HCL IV 5 MG/ML 20ML IV PRN (16:59)
[2019-12-18] MEDS ORDERED: PROMETHAZINE HCL 12.5 MG in SODIUM CHLORIDE 0.9% 50 ML IV PRN (16:59)
[2019-12-18] MEDS ORDERED: ePHEDrine sulfate 50 MG/ML AMP IV PRN (16:59)
[2019-12-18] MEDS ORDERED: ATROPINE SULFATE 0.1 MG/ML 10ML SYR IV PRN (16:59)
[2019-12-18] MEDS ORDERED: HYDROmorphone INJ 1 MG/ML SYRINGE IV PRN (16:59)
--- NOTE | 2019-12-18 17:02 | Fluoroscopy Report ---
FL retrograde includes kub CLINICAL HISTORY: CYSTO/STENT PLACEMENT COMPARISON STUDY: CT scan dated 12/18/2019 FLUOROSCOPY TIME: 27 seconds. NUMBER OF FLUOROSCOPIC IMAGES: 6 FINDINGS: 6 intraoperative fluoroscopic spot images are provided for interpretation. These demonstrat e retrograde catheterization of the right ureter. The collecting system was never significantly opaci fied. The final 2 images demonstrate placement of a double pigtail right-sided nephroureteral stent. The proximal pigtail did not fully formed. IMPRESSION: Retrograde examination with placement of a right-sided nephroureteral stent. ACT 112: Negative or not required by law. Electronically signed by: Neville Angeles M.D. 12/18/2019 5:01 PM
[2019-12-18] MEDS: fentaNYL citrate 100 MCG/2 ML VIAL IV PRN ×2 (17:04→17:09)
--- NOTE | 2019-12-18 17:19 | Operative Report (OR) ---
DATE OF OPERATION: 12/18/2019 PROCEDURE PERFORMED: Right cystoscopy and right stent. PREOPERATIVE DIAGNOSES: Urinary tract infection with fever and chills, right obstructing ureteral calculus. POSTOPERATIVE DIAGNOSES: Urinary tract infection with fever and chills, right obstructing ureteral calculus. SURGEON: Jose Ojeda MD. ANESTHESIA: Sedation. INDICATIONS: The patient is a 44-year-old female with previous history of stones who presented with acute-onset severe right flank pain and had chills and fever and had fever in the OR, pyuria who had a proximal right ureteral stone and also some stones in the lower pole of the right kidney. The patient presents for stent placement. She was in severe pain and because of the fever and the pyuria, a stent was to be placed to allow her to clear her infection and possibly have either lithotripsy or ureteroscopy later on. DESCRIPTION OF THE PROCEDURE: The patient was taken to the cysto suite where sedation was given. She was placed in dorsal lithotomy position. She had been given ceftriaxone in the Emergency Room. A cystoscope was placed. The right ureteral orifice was identified. A retrograde was performed, but I could not get any contrast beyond the stone. A dual flex guidewire was passed through the 5-Chilean open-ended catheter that was used for the retrograde and it went up into what would have been the renal pelvis and then a 5-Chilean 24 cm stent with strings attached as opposed to a curl in the bladder was initially attempted, but the strings pulled out; when the scope was pulled out, I could not keep them in the bladder, so I went with a 5-Chilean 24 cm stent double J which went up without any difficulty. A picture was taken with fluoroscopy of what appeared to be a curl in the upper pole of the kidney and also in the bladder. There did appear to be contrast coming through the stent. At the end of the procedure, the patient was transferred to recovery room in stable condition. Prior to her going to the recovery room, we placed a 16-Chilean Mos[place]eda catheter. I attest to the content of the Intraoperative Record and any orders documented therein. Any exception s are noted below.
--- NOTE | 2019-12-18 17:34 | Anesthesiology Progress Note ---
Date of Service December 18, 2019 Anesthesia Post Procedure Vital Signs Vital Signs: Temp Pulse Pulse Pulse Pulse Resp BP 12/18/19 17:25 36.8 C 95 H 16 12/18/19 17:15 94 H 16 12/18/19 17:05 98 H 16 12/18/19 16:59 38.1 C H 91 H 16 12/18/19 15:45 37.9 C H 102 H 20 12/18/19 15:10 39.3 C H 104 H 16 12/18/19 14:10 39 C H 104 H 18 12/18/19 12:50 102 H 18 12/18/19 11:10 12/18/19 10:52 37.1 C 97 H 20 198/118 H BP Pulse Ox 12/18/19 17:25 120/88 93 12/18/19 17:15 139/88 92 12/18/19 17:05 101/89 100 12/18/19 16:59 130/79 100 12/18/19 15:45 137/85 96 12/18/19 15:10 131/86 94 12/18/19 14:10 149/92 H 93 12/18/19 12:50 137/86 97 12/18/19 11:10 98 12/18/19 10:52 99 Pain Intensity Right Flank: Pain Intensity: 4 Transfer of Care Handoff Completed per policy Notes Mental Status: alert / awake / arousable Patient Amnestic to Procedure: Yes Nausea / Vomiting: adequately controlled Pain: adequately controlled Airway Patency, RR, SpO2: stable & adequate BP & HR: stable & adequate Hydration State: stable & adequate Anesthetic Complications: no major complications apparent
--- NOTE | 2019-12-18 17:54 | History & Physical Report ---
Date of Service December 18, 2019 Assessment & Plan (1) Right ureteral calculus: IV fluids, pain control with Dilaudid and Oxycodone s/p cystoscopy with right ureteral stent by Dr Tate follow up [facility] tomorrow possible d/c if okay with urology (2) Pyelonephritis: evidence of UTI, possible pyelonephritis with the stone treat with Rocephin follow up with urine culture tachycardia due to pain, no signs of sepsis (3) Fever and chills: due to UTI Tylenol PRN definitive treatment with stent (4) Hypertension: BP stable no home medications (5) Hypothyroidism: not on Synthroid Admission and Anticipated Discharge Date Admission Date: December 18, 2019 History of Present Illness Chief Complaint: I can't stand this pain Primary Care Provider: Lili Friedman MD 44 yo female with history of kidney stones when living in [place], presents to the ED with two days of worsening right flank pain. She said the pain was similar to when she had kidney stones in the past. Associated with vomiting, chills, fever. No dysuria, no hematuria seen. No shortness of breath or chest pain. She could not get comfortable with changing positions, OTC pain medications did not help at all and the pain became severe. Presented to the ED today, found to have [id number] stone in right ureter. UA appeared dirty with WBC. No evidence of renal failure. Morphine, Dilaudid in the ED did very little to help pain. Rocephin and NSS bolus given and admission requested. I discussed with the urologist computer system validation specialist about the situation, likely would need cystoscopy and stent today, they agreed. Allergies Allergy/AdvReac Type Severity Reaction Status Date / Time Penicillins Allergy Unknown HIVES Verified 12/18/19 11:34 Home Medications Home Medications Medication Instructions Recorded Confirmed Type No Known Home Medications 12/18/19 12/18/19 History Past Med/Surg History Medical History History of blood transfusion Hypertension Hypothyroidism (Chronic) Kidney stones (Resolved) Surgical History H/O tubal ligation History of laparoscopy Reports "nicked an artery" requiring 4 pints of blood -- approx age 12 History of nephrolithotomy with removal of calculi Family History Aunt Breast cancer Myocardial infarction Grandfather (Paternal) Lung cancer Grandmother (Paternal) Breast cancer Sister Breast cancer Half-Sister Denies family history of Ovarian cancer Prostate cancer Colorectal cancer Social History Preferred Language: Jamaican Communication Ability: Effective Beliefs That Will Affect Care: None marital status: Current Living Situation: Alone current occupational status: employed Other Information That Helps Us Care for You: No Feels Safe at Home: Yes Safety Concerns: Feels Safe At This Time Smoking Status: Former smoker Number of Years Since Quit: 20 ; Hx Alcohol Use: Yes Alcohol type: wine Alcohol Intake Frequency: Weekly Alcohol Intake Frequency Comment: 3 days a week Hx Substance Use: No Dental Care, Regularly: Yes Physical Activity Frequency: Daily Seatbelt Use: always Review of Systems Review of Systems: All systems reviewed & are unremarkable except as noted in HPI & below Constitutional: + fever, + chills, + sweats and + malaise; no fatigue and no weakness Respiratory: no cough and no dyspnea Cardiovascular: no chest pain and no edema Gastrointestinal: + nausea and + vomiting; no abdominal pain, no constipation and no diarrhea/loose stools Genitourinary: + flank pain (severe, right); no dysuria and no urinary frequency Physical Exam Constitutional: well developed, well nourished and + acute distress; + uncomfortable Eyes: PERRL, conjunctivae normal, anicteric sclerae ENMT: external ear and nose normal, oropharynx normal Neck: trachea midline, no thyromegaly Respiratory: normal respiratory effort, lungs clear to auscultation Cardiovascular: Rate/Rhythm: regular rhythm and + tachycardic Gastrointestinal (Abdomen): normal bowel sounds, soft, nontender, no hepatosplenomegaly Musculoskeletal: no cyanosis or clubbing, extremities motor strength 5/5 Skin: no rashes, warm and dry Neurologic: patellar DTR's 2+ bilat, sensation intact and PERRL, EOMI, accommodation nl, no face palsy, no dysarthria Psychiatric: A+Ox3, euthymic affect Genitourinary: + CVA tenderness (right sided) Lymphatic: no cervical or axillary lymphadenopathy Results & Data Results & Data ([facility]) Vital Signs (Past 12 Hours) Vital Signs Temp Pulse Pulse Pulse Pulse Resp BP 12/18/19 17:30 37.3 C 95 H 16 12/18/19 17:25 36.8 C 95 H 16 12/18/19 17:15 94 H 16 12/18/19 17:05 98 H 16 12/18/19 16:59 38.1 C H 91 H 16 12/18/19 15:45 37.9 C H 102 H 20 12/18/19 15:10 39.3 C H 104 H 16 12/18/19 14:10 39 C H 104 H 18 12/18/19 12:50 102 H 18 12/18/19 11:10 12/18/19 10:52 37.1 C 97 H 20 198/118 H BP Pulse Ox 12/18/19 17:30 121/83 96 12/18/19 17:25 120/88 93 12/18/19 17:15 139/88 92 12/18/19 17:05 101/89 100 12/18/19 16:59 130/79 100 12/18/19 15:45 137/85 96 12/18/19 15:10 131/86 94 12/18/19 14:10 149/92 H 93 12/18/19 12:50 137/86 97 12/18/19 11:10 98 12/18/19 10:52 99 Laboratory Results Laboratory Results - last 24 hr 12/18/19 12/18/19 12/18/19 11:05 11:05 11:05 WBC 10.20 RBC 4.51 Hgb 14.3 Hct 43.1 MCV 95.6 MCH 31.7 MCHC 33.2 RDW Std Deviation 45.9 RDW Coeff of Alex 13.2 Plt Count 218 MPV 9.5 Immature Gran % (Auto) 0.2 Neut % (Auto) 87.4 Lymph % (Auto) 9.7 Cloud % (Auto) 2.2 Eos % (Auto) 0.3 Baso % (Auto) 0.2 Immature Gran # (Auto) 0.02 Neut # (Auto) 8.92 H Lymph # (Auto) 0.99 L Cloud # (Auto) 0.22 Eos # (Auto) 0.03 Baso # (Auto) 0.02 PT 11.0 INR 1.0 APTT 31.3 H PTT Ratio 1.1 Sodium 132 L Potassium 3.6 Chloride 99 Carbon Dioxide 27 Anion Gap 6.0 BUN 15 Creatinine 1.08 Est Cr Clr Drug Dosing Not Reportable Est GFR ( Amer) 71.8 Est GFR (Non-Af Amer) 61.9 BUN/Creatinine Ratio 13.5 Glucose 125 H Lactate Calcium 9.4 Total Bilirubin 1.1 H AST 22 ALT 35 Alkaline Phosphatase 71 Total Protein 8.5 H Albumin 4.1 Globulin 4.4 H Albumin/Globulin Ratio 0.9 Lipase 95 HCG, Qual Urine Color Urine Appearance Urine pH Ur Specific [place] Urine Protein Urine Glucose (UA) Urine Ketones Urine Blood Urine Nitrite Urine Bilirubin Urine Urobilinogen Ur Leukocyte Esterase Urine WBC (Auto) Urine RBC (Auto) U Hyaline Cast (Auto) U Epithel Cells (Auto) Urine Bacteria (Auto) 12/18/19 12/18/19 12/18/19 11:05 11:05 12:05 WBC RBC Hgb Hct MCV MCH MCHC RDW Std Deviation RDW Coeff of Alex Plt Count MPV Immature Gran % (Auto) Neut % (Auto) Lymph % (Auto) Cloud % (Auto) Eos % (Auto) Baso % (Auto) Immature Gran # (Auto) Neut # (Auto) Lymph # (Auto) Cloud # (Auto) Eos # (Auto) Baso # (Auto) PT INR APTT PTT Ratio Sodium Potassium Chloride Carbon Dioxide Anion Gap BUN Creatinine Est Cr Clr Drug Dosing Est GFR ( Amer) Est GFR (Non-Af Amer) BUN/Creatinine Ratio Glucose Lactate 1.5 Calcium Total Bilirubin AST ALT Alkaline Phosphatase Total Protein Albumin Globulin Albumin/Globulin Ratio Lipase HCG, Qual Negative Urine Color Dark Yellow Urine Appearance Cloudy A Urine pH 5.5 Ur Specific [place] 1.027 Urine Protein 1+ H Urine Glucose (UA) Negative Urine Ketones 1+ H Urine Blood 1+ H Urine Nitrite Positive A Urine Bilirubin Negative Urine Urobilinogen Negative Ur Leukocyte Esterase 1+ H Urine WBC (Auto) >30 H Urine RBC (Auto) 5-10 H U Hyaline Cast (Auto) 10-30 H U Epithel Cells (Auto) >30 H Urine Bacteria (Auto) 4+ H Diagnostic Findings CT abdomen/pelvis IMPRESSION: 1. Mild right-sided hydroureteronephrosis secondary to an obstructing 5 x 4 x 7 mm calculus of the proximal right ureter at the level of the superior endplate L4. 2. Right greater than left nonobstructing bilateral nephrolithiasis. 3. No bowel obstruction or bowel wall thickening. Normal appendix. 4. Hepatic steatosis. Code Status & VTE Plan VTE Prophylaxis Plan VTE Prophylaxis will be ordered: Yes PG Care Time/CCT Total # of Minutes Spent Total Time Spent with Patient: Total time spent is greater than 50% in coordination of care (as documented) at patient's floor/unit and/or counseling patient: Coding Level of Care Code 04655 OBS Care - Level 3 Diagnoses Right ureteral calculus N20.1 Pyelonephritis N12 Fever and chills R50.9 Hypertension I10 Hypothyroidism E03.9
[2019-12-18] MEDS: HYDROmorphone INJ 1 MG/ML SYRINGE IV PRN (22:32)
[2019-12-19] MEDS: OXYCODONE HCL IR 5 MG TAB (IMMEDIATE RELEASE) PO PRN ×5 (01:13→22:51)
[2019-12-19] MEDS: HYDROmorphone INJ 1 MG/ML SYRINGE IV PRN ×2 (04:56→10:00)
--- NOTE | 2019-12-19 06:32 | Electrocardiogram Report ---
Test Reason : Blood Pressure : / mmHG Vent. Rate : 098 BPM Atrial Rate : 098 BPM P-R Int : 170 ms QRS Dur : 082 ms QT Int : 324 ms P-R-T Axes : 047 045 -16 degrees QTc Int : 413 ms Poor data quality, interpretation may be adversely affected Normal sinus rhythm T wave abnormality, consider inferior ischemia Abnormal ECG When compared with ECG of 17-OCT-2017 07:23, Vent. rate has increased BY 45 BPM QRS duration has decreased T wave inversion now evident in Inferior leads Confirmed by Asim Zavala ([id number]) on 12/19/2019 6:32:27 AM Referred By: REFERRED SELF Confirmed By:Asim Zavala
[2019-12-19] MEDS: SODIUM CHLORIDE 0.9% 1000ML 1,000 ML IV SCH (07:04)
[2019-12-19 08:27] LABS: Basophils # (auto) 0.01 K/uL (0-0.2); Basophils % (auto) 0.1 %; Eosinophils # (auto) 0.01 K/uL (0-0.5); Eosinophils % (auto) 0.1 %; Hematocrit (blood only) 34.1 % (37-47); Hemoglobin 11.3 g/dL (12.0-16.0); Immature Granulocytes # (auto) 0.06 K/uL (0.00-0.02); Immature Granulocytes % (auto) 0.5 %; Lymphocytes # (auto) 0.74 K/uL (1.2-3.4); Mean Corpuscular Hemoglobin 31.6 pg (25-34); Mean Corpuscular Hgb Conc 33.1 g/dL (32-36); Mean Corpuscular Volume 95.3 fL (80-100); Mean Platelet Volume 9.5 fL (7.4-10.4); Monocytes # (auto) 0.88 K/uL (0.11-0.59); Monocytes % (auto) 7.2 %; Neutrophils % (auto) 86.1 %; Platelet Count 126 K/uL (130-400); RDW Coefficient of Variation 13.4 % (11.5-14.5); RDW Standard Deviation 47.2 fL (36.4-46.3); Red Blood Count 3.58 M/uL (4.2-5.4)
[2019-12-19 08:58] LABS: BUN Creatinine Ratio 16.9 (10-20); Calcium 8.1 mg/dl (8.5-10.1); Creatinine Clr Calc Pharmacy 124.6 ml/min; Est GFR (African American) 125.6; Est GFR (Non-African American) 108.3; Potassium 3.2 mmol/L (3.5-5.1)
--- NOTE | 2019-12-19 08:58 | Urology Progress Note ---
Date of Service December 19, 2019 Assessment & Plan (1) Right ureteral calculus: Right ureteral calculus status post emergent stent placement yesterday Substantial improvement today Cultures are still pending however her blood cultures are preliminarily showing gram-negative bacilli Pending the final culture results we can determine antibiotic coveragelikely requires 10 to 14 days of total treatment We will then arrange for outpatient follow-up and treatment of her stone Subjective Feeling much better this morning She reports that her severe pain has resolved with the stent placement She did have a low-grade temperature this morning No nausea or vomiting Anxious to go home Review of Systems Review of Systems: All systems reviewed & are unremarkable except as noted in HPI & below Physical Exam Constitutional: well developed and well nourished Respiratory: no respiratory distress Cardiovascular: Extremities: no pedal edema Gastrointestinal (Abdomen): Inspection/Auscultation: abdomen normal to inspection Results & Data Vital Signs (Past 12 Hours) Vital Signs Temp Pulse Pulse Pulse Resp BP BP 12/19/19 07:16 37.8 C H 73 18 132/82 12/19/19 02:17 37.0 C 75 16 143/88 H 12/18/19 23:04 37.0 C 86 14 110/71 12/18/19 21:30 37.2 C 87 16 106/73 Pulse Ox 12/19/19 07:16 95 12/19/19 02:17 98 12/18/19 23:04 96 12/18/19 21:30 96 PG Care Time/CCT Total # of Minutes Spent Total Time Spent with Patient: Total time spent is greater than 50% in coordination of care (as documented) at patient's floor/unit and/or counseling patient: Coding Level of Care Code 91349 Subseq Hosp Care Lvl 2 Diagnoses Right ureteral calculus N20.1
[2019-12-19] MEDS: POTASSIUM CHLORIDE 20 MEQ TABCR PO SCH ×2 (10:05→20:39)
[2019-12-19] MEDS ORDERED: cefTRIAXone SODIUM 2,000 MG in DEXTROSE 5% 50 ML IV SCH (12:00)
[2019-12-19] MEDS: ACETAMINOPHEN 325 MG TAB PO PRN ×2 (12:45→23:33)
--- NOTE | 2019-12-19 14:16 | Hospitalist Progress Note ---
Date of Service December 19, 2019 Assessment & Plan (1) Right ureteral calculus: pain control with Dilaudid and Oxycodone s/p cystoscopy with right ureteral stent by Dr Tate on 12/17 Cr normal keep in hospital due to bacteremia stop IV fluids as she is drinking well, urine output picking up slowly (2) Pyelonephritis: evidence of UTI, possible pyelonephritis with the stone treat with Rocephin urine culture growing E coli, sensitivity pending will need 14 days total WBC 12k, low grade temp but no true fever since admission (3) Bacteremia: gram negative rods in both sets of blood cultures, likely E coli from urine follow up final results will need 14 days total treatment (4) Hypokalemia: low at 3.2, will start on 20mEq BID, repeat tomorrow (5) Fever and chills: due to UTI Tylenol PRN definitive treatment with stent (6) Hypertension: BP stable no home medications (7) Hypothyroidism: not on Synthroid Admission and Anticipated Discharge Date Admission Date: December 19, 2019 Subjective patient feeling a lot better this morning, had a low grade temperature eating better, no further nausea reviewed labs, WBC 12k, K low at 3.2, Cr stable at 0.6 reviewed record, had stent placed yesterday urine culture growing E coli both blood cultures with gram negative bacilli Review of Systems Review of Systems: All systems reviewed & are unremarkable except as noted in HPI & below Constitutional: + fever, + chills and + sweats; no fatigue and no weakness Respiratory: no cough and no dyspnea Cardiovascular: no chest pain and no edema Gastrointestinal: no abdominal pain, no nausea, no vomiting, no constipation and no diarrhea/loose stools Genitourinary: + flank pain (mild, right sided) Physical Exam Constitutional: well developed and well nourished; no acute distress Eyes: PERRL, conjunctivae normal, anicteric sclerae ENMT: external ear and nose normal, oropharynx normal Neck: trachea midline, no thyromegaly Respiratory: normal respiratory effort, lungs clear to auscultation Cardiovascular: Rate/Rhythm: regular rate and regular rhythm Heart Sounds: normal S1 and normal S2; no murmur Gastrointestinal (Abdomen): normal bowel sounds, soft, nontender, no hepatosplenomegaly Musculoskeletal: no cyanosis or clubbing, extremities motor strength 5/5 Skin: no rashes, warm and dry Neurologic: patellar DTR's 2+ bilat, sensation intact and PERRL, EOMI, accommodation nl, no face palsy, no dysarthria Psychiatric: A+Ox3, euthymic affect Genitourinary: + CVA tenderness (right sided) Lymphatic: no cervical or axillary lymphadenopathy Results & Data Results & Data ([facility]) Vital Signs (Past 12 Hours) Vital Signs Temp Pulse Resp BP Pulse Ox 12/19/19 07:16 37.8 C H 73 18 132/82 95 12/19/19 02:17 37.0 C 75 16 143/88 H 98 Laboratory Results Laboratory Results - last 24 hr 12/19/19 12/19/19 07:59 07:59 WBC 12.30 H RBC 3.58 L Hgb 11.3 L D Hct 34.1 L MCV 95.3 MCH 31.6 MCHC 33.1 RDW Std Deviation 47.2 H RDW Coeff of Alex 13.4 Plt Count 126 L MPV 9.5 Immature Gran % (Auto) 0.5 Neut % (Auto) 86.1 Lymph % (Auto) 6.0 [place] % (Auto) 7.2 Eos % (Auto) 0.1 Baso % (Auto) 0.1 Immature Gran # (Auto) 0.06 H Neut # (Auto) 10.60 H Lymph # (Auto) 0.74 L [place] # (Auto) 0.88 H Eos # (Auto) 0.01 Baso # (Auto) 0.01 Sodium 134 L Potassium 3.2 L Chloride 103 Carbon Dioxide 26 Anion Gap 5.0 BUN 11 Creatinine 0.63 D Est Cr Clr Drug Dosing 124.6 Est GFR ( Amer) 125.6 Est GFR (Non-Af Amer) 108.3 BUN/Creatinine Ratio 16.9 Glucose 105 H Calcium 8.1 L Microbiology 12/18/19 11:05 Urine,Clean Catch Urine Culture - Preliminary Escherichia coli 12/18/19 11:25 Blood Aerobic Blood Culture - Preliminary Gram negative bacilli 12/18/19 11:25 Blood Anaerobic Blood Culture - Preliminary Gram negative bacilli 12/18/19 11:25 Blood Aerobic Blood Culture - Preliminary Gram negative bacilli 12/18/19 11:25 Blood Anaerobic Blood Culture - Preliminary Gram negative bacilli Medications Administered Current Inpatient Medications Acetaminophen (Tylenol) 650 mg PO Q4H PRN PRN Reason: pain/fever Stop: 01/17/20 14:09 Last Admin: 12/19/19 12:45 Dose: 650 mg Documented by: Hydromorphone HCl (Dilaudid) 1 mg IV Q4 PRN PRN Reason: Pain Stop: 01/01/20 14:09 Last Admin: 12/19/19 10:00 Dose: 1 mg Documented by: Ceftriaxone Sodium 2,000 mg/ (Dextrose) 70 mls @ 100 mls/hr IV Q24H KAELA Stop: 12/28/19 11:59 Last Infusion: 12/19/19 12:30 Dose: Infused Documented by: Ondansetron HCl (Zofran) 4 mg IV Q6H PRN PRN Reason: Nausea Stop: 01/17/20 14:09 Oxycodone HCl (Roxicodone Immediate Rel) 5 mg PO Q4 PRN PRN Reason: Pain Stop: 01/01/20 14:09 Last Admin: 12/19/19 07:04 Dose: 5 mg Documented by: Polyethylene Glycol (Miralax Powder Packet) 17 gm PO DAILY PRN PRN Reason: Constipation Stop: 01/17/20 14:09 Potassium Chloride (Klor-Con M20) 20 meq PO BID KAELA Stop: 01/18/20 09:29 Last Admin: 12/19/19 10:05 Dose: 20 meq Documented by: PG Care Time/CCT Total # of Minutes Spent Total Time Spent with Patient: Total time spent is greater than 50% in coordination of care (as documented) at patient's floor/unit and/or counseling patient: Coding Level of Care Code 40194 Subseq Hosp Care Lvl 3 Diagnoses Right ureteral calculus N20.1 Pyelonephritis N12 Bacteremia R78.81 Hypokalemia E87.6 Fever and chills R50.9 Hypertension I10 Hypothyroidism E03.9
[2019-12-19] MEDS: POLYETHYLENE (MIRALAX) 17 GM PACK PO PRN (23:33)
[2019-12-20] MEDS: HYDROmorphone INJ 1 MG/ML SYRINGE IV PRN (00:05)
[2019-12-20] MEDS: POLYETHYLENE (MIRALAX) 17 GM PACK PO PRN (07:57)
[2019-12-20] MEDS: ACETAMINOPHEN 325 MG TAB PO PRN (07:58)
[2019-12-20] MEDS: POTASSIUM CHLORIDE 20 MEQ TABCR PO SCH (08:00)
[2019-12-20 08:36] LABS: BUN Creatinine Ratio 14.4 (10-20); Calcium 8.9 mg/dl (8.5-10.1); Creatinine Clr Calc Pharmacy 118.9 ml/min; Est GFR (African American) 123.6; Est GFR (Non-African American) 106.7; Potassium 3.4 mmol/L (3.5-5.1)
--- NOTE | 2019-12-20 11:00 | Discharge Summary ---
Date of Service December 20, 2019 Admission HPI Per Admitting Provider 44 yo female with history of kidney stones when living in [place], presents to the ED with two days of worsening right flank pain. She said the pain was similar to when she had kidney stones in the past. Associated with vomiting, chills, fever. No dysuria, no hematuria seen. No shortness of breath or chest pain. She could not get comfortable with changing positions, OTC pain medications did not help at all and the pain became severe. Presented to the ED today, found to have [id number] stone in right ureter. UA appeared dirty with WBC. No evidence of renal failure. Morphine, Dilaudid in the ED did very little to help pain. Rocephin and NSS bolus given and admission requested. 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 Principal Diagnosis Right ureteral stone with pyelonephritis Discharge Exam Constitutional well developed and well nourished; no acute distress Eyes PERRL, conjunctivae normal, anicteric sclerae ENMT external ear and nose normal, oropharynx normal Neck trachea midline, no thyromegaly Respiratory normal respiratory effort, lungs clear to auscultation Cardiovascular Rate/Rhythm: regular rate and regular rhythm Heart Sounds: normal S1 and normal S2; no murmur Gastrointestinal (Abdomen) normal bowel sounds, soft, nontender, no hepatosplenomegaly Musculoskeletal no cyanosis or clubbing, extremities motor strength 5/5 Skin no rashes, warm and dry Neurologic patellar DTR's 2+ bilat, sensation intact and PERRL, EOMI, accommodation nl, no face palsy, no dysarthria Psychiatric A+Ox3, euthymic affect Genitourinary + CVA tenderness (right sided) Lymphatic no cervical or axillary lymphadenopathy Discharge Data Allergies Allergy/AdvReac Type Severity Reaction Status Date / Time Penicillins Allergy Unknown HIVES Verified 12/18/19 11:34 Consultations 12/18/19 13:11 ED Decision to Admit Stat 12/18/19 14:10 Consult Urology Routine Procedures Performed Operation Date: 12/18/19 15:30 Actual Procedures p Cystoscopy, Right Retrograde Pyelogram, Right Stent Placement(Right) - Jose Ojeda MD Ordered Studies 12/18/19 [place] retrograde includes kub Routine 12/18/19 11:10 CT abd pelvis wo con Stat Hospital Course (1) Right ureteral calculus: pain control with Dilaudid and Oxycodone s/p cystoscopy with right ureteral stent by Dr Tate on 12/17 Cr normal minimal pain today, control with Tylenol and use Oxycodone PRN for breakthrough will follow up with [facility] for stone management and stent removal (2) Pyelonephritis: evidence of UTI, possible pyelonephritis with the stone treated with Rocephin initially urine culture growing E coli, sensitive to Cipro, will d/c on Cipro 500mg BID x 14 days WBC normal, low grade fever last night but overall feels a lot better, wants to go home (3) Bacteremia: E coli in both sets of blood cultures, likely E coli from urine will need 14 days total treatment with Cipro (4) Hypokalemia: low at 3.2, will start on 20mEq BID resolved today (5) Fever and chills: due to UTI, bacteremia Tylenol PRN definitive treatment with stent (6) Hypertension: BP stable no home medications (7) Hypothyroidism: not on Synthroid Total Time Total Time Spent Total Time Spent (In Minutes): 33 minutes Total Time Includes: Examination of the Patient, Discharge Planning, Medication Reconciliation and Communication With Other Providers (Dr. Hollins) Discharge Plan Discharge Items Patient Disposition: Home - Self-Care Reason For Visit: URETERAL STONE Discharge Diagnosis: Right ureteral stone E coli UTI, pyelonephritis E coli bacteremia due to UTI Condition on Discharge: Good Goals: complete course of Ciprofloxacin follow up with urology for stone management, stent removal Activity: Resume your previous activity Driving/Machine Use: don't drive after taking Oxycodone Weightbearing: Full weightbearing Non-emergency contact: Primary Care Provider and Urologist Call non-emergency contact if: you have any medication questions, your symptoms worsen and you have a fever Follow-up/Referrals: Randy Hollins MD [Physician] - (2 weeks, urology office will contact patient) Lili Friedman MD [Primary Care Provider] - Diet: Regular Addtl Attending Provider Instructions: Medications: - CIPROFLOXACIN: 500mg twice a day for 14 more days to treat bacteremia and pyelonephritis, start this evening - OXYCODONE: take as needed for pain, use Tylenol as first line agent Right ureteral stone, pyelonephritis, E coli bacteremia improved greatly with stent, fluids, IV antibiotics blood and urine culture grew E coli, sensitive to Cipro, will d/c home on 14 day course expect to have intermittent fevers next 1-3 days but should go away pain should also improve, use tylenol at first, Oxycodone for breakthrough pain stay well hydrated, well nourished, stay active [facility] office will contact you for follow up for definitive stone management and stent removal as outpatient Pending Studies at Discharge: No Stand-Alone Forms: My [facility], Opioid Pain Management, Smoking Cessation Medications and DC Order Prescriptions: New oxycodone 5 mg tablet 5 mg PO Q8H PRN (Reason: pain) Qty: 20 RF: 0 ciprofloxacin HCl 500 mg tablet 500 mg PO BID Qty: 28 RF: 0 Discharge Orders: Discharge Order (Routine); Ordered 12/20/19 Ordered By: Abisai العراقي/Other Patient Handouts: Stents Ureteral Admission Data Admit Date/Time: 12/19/19 10:40 Attending Provider: Abisai Albright Admit Provider: Abisai Albright Primary Care Provider: Lili Friedman Other Providers: Abisai Albright ; Randy Hollins Other Interventions: Discharge Summary Assessment (RN) Last Done: 12/20/19 11:02 DC Date/Time DO NOT enter until pt leaves facility: 12/20/19 12:04 Coding Level of Care Code D/C Day Management >30 mins Diagnoses Right ureteral calculus N20.1 Pyelonephritis N12 Bacteremia R78.81 Hypokalemia E87.6 Fever and chills R50.9 Hypertension I10 Hypothyroidism E03.9
== END 2019-12-20 12:04 | disposition home or self-care (01) | DRG 660 ==
LOC: ED 10:50 → 3N 10:50

== ENCOUNTER 2020-01-13 09:43 | Inpatient (IN) ==
[2020-01-13] MEDS ORDERED: ACETAMINOPHEN 325 MG TAB PO STA (10:09)
[2020-01-13] MEDS ORDERED: cefTRIAXone SODIUM 2,000 MG/70 ML BAG IV STA (10:09)
[2020-01-13] MEDS ORDERED: ONDANSETRON INJ 2 MG/ML 2 ML VIAL IV STA (10:10)
[2020-01-13] MEDS ORDERED: MoRPHine SULFATE 4 MG/ML 1 ML CARP\\VIAL IV STA (10:10)
--- NOTE | 2020-01-13 10:12 | Emergency Department Note ---
History of Present Illness General Chief complaint: Fever Stated complaint: POST SURG FRI - FEVER 102 Time Seen by Provider: 01/13/20 09:57 Source: patient Mode of arrival: ambulatory Limitations: no limitations History of Present Illness Provider complaint: Right flank pain Onset (ago): month(s) Location: back and right Radiation: abdomen Pain Consistency: + intermittent Maximum Pain Intensity: 7 Quality: + sharp Relieved By: + none Associated symptoms: + fever/chills and + nausea/vomiting (Nausea without vomit ing); no chest pain, no cough and no shortness of breath This is a 44-year-old female who presents with right-sided flank pain for the past month. She was recently admitted for bacteremia from E. coli and a kidney infection with a right-sided 5 mm obstructive stone. She was treated with antibiotics last month when she was diagnosed and had a stent placed during that admission. She had lithotripsy 4 days ago and the day after developed a fever. Yesterday her temp has been 102 all day. She try to call her urologist but she never received a call back. She does complain of right flank pain which has been going on for the past month. It is intermittent. It is sharp. No alleviating factors. It is associated with nausea without vomiting. She also complains of dysuria. Her pain is in her right flank with radiation to the right abdomen. She denies any cough or cold symptoms, known exposure to COVID- 19, loss of smell or taste or diarrhea. She did have a COVID-19 test prior to her lithotripsy which was negative. Home Medications Home Medications Medication Instructions Recorded Confirmed Type oxycodone 5 mg PO Q8H PRN #20 tab 12/20/19 01/13/20 Rx tamsulosin 0.4 mg capsule 0.4 mg PO DAILY #30 cap 12/30/19 01/13/20 Rx acetaminophen [Tylenol Extra 500 mg PO UD PRN 01/02/20 01/13/20 History Strength] hydrocodone-acetaminophen 1 tab PO Q6H PRN #20 tab 01/09/20 01/13/20 Rx Allergies Allergy/AdvReac Type Severity Reaction Status Date / Time Penicillins Allergy Unknown HIVES Verified 01/13/20 10:57 Past Med/Surg History Medical History Endometriosis History of blood transfusion Hypertension Hypothyroidism (Chronic) HX OF, NO CURRENT MEDS - MONITORS Kidney stones (Resolved) Renal colic (Acute) Right ureteral calculus (Acute) Surgical History H/O tubal ligation History of colonoscopy History of gynecologic surgery BURNED ENDOMETRIOSIS OFF (MULTIPLE TIMES) History of laparoscopy Reports "nicked an artery" requiring 4 pints of blood -- approx age 12 History of nephrolithotomy with removal of calculi Family History Aunt Myocardial infarction Breast cancer Grandfather (Paternal) Lung cancer Grandmother (Paternal) Breast cancer Sister Breast cancer Half-Sister Other Family history of diabetes mellitus Denies family history of Ovarian cancer Prostate cancer Colorectal cancer Social History Preferred Language: Maori Communication Ability: Effective 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 and A total of 10 systems reviewed and were otherwise negative Physical Exam Vital Signs Vital Signs - 24 hr 01/13/20 09:55 01/13/20 10:25 01/13/20 11:00 Temperature 38.6 C H Temperature Source Oral Pulse Rate 104 H 82 Pulse Rate [Apical] Pulse Rate from SpO2 Sensor 83 Pulse Rhythm [Apical] Respiratory Rate 20 22 Respiratory Effort / Characteristics Non-Labored Spontaneous Respiratory Depth Normal Respiratory Pattern Regular Blood Pressure 128/86 151/88 H Blood Pressure [Right Arm] Blood Pressure Mean 100 121 Blood Pressure Mean [Right Arm] Blood Pressure Position Sitting Pulse Oximetry 97 97 97 Oxygen Delivery Method Room Air Room Air Sepsis Recent Fever Within 48 Hours No Sepsis New/Unexplained Change in Mental Status No Sepsis Action Taken by Nursing No Action Required 01/13/20 11:04 01/13/20 11:30 01/13/20 12:00 Temperature 38.4 C H Temperature Source Oral Pulse Rate 73 73 Pulse Rate [Apical] 84 Pulse Rate from SpO2 Sensor 73 74 Pulse Rhythm [Apical] Regular Respiratory Rate 18 16 16 Respiratory Effort / Characteristics Respiratory Depth Normal Respiratory Pattern Blood Pressure 134/89 124/85 Blood Pressure [Right Arm] 151/88 H Blood Pressure Mean 101 97 Blood Pressure Mean [Right Arm] 109 Blood Pressure Position Pulse Oximetry 98 95 94 Oxygen Delivery Method Room Air Sepsis Recent Fever Within 48 Hours Sepsis New/Unexplained Change in Mental Status Sepsis Action Taken by Nursing 01/13/20 12:30 01/13/20 12:40 01/13/20 14:00 Temperature 37.3 C Temperature Source Oral Pulse Rate 85 70 Pulse Rate [Apical] Pulse Rate from SpO2 Sensor 81 72 Pulse Rhythm [Apical] Respiratory Rate 19 15 Respiratory Effort / Characteristics Respiratory Depth Respiratory Pattern Blood Pressure 124/81 120/80 Blood Pressure [Right Arm] Blood Pressure Mean 87 87 Blood Pressure Mean [Right Arm] Blood Pressure Position Pulse Oximetry 96 98 Oxygen Delivery Method Sepsis Recent Fever Within 48 Hours Sepsis New/Unexplained Change in Mental Status Sepsis Action Taken by Nursing Constitutional: Vital signs reviewed. Eyes: Pupils are equal round reactive to light. Conjunctiva are noninjected. ENT: Pharynx is clear without erythema or exudate. Mucous membranes are slightly dry. Neck supple without meningeal signs. Respiratory: Clear to auscultation bilaterally. Breath sounds are equal bilaterally. Cardiovascular: Regular rate and rhythm. No rubs or gallops. GI: Soft, nondistended with mild right lower quadrant tenderness. No guarding. Bowel sounds are present. Musculoskeletal: No peripheral edema. No lower extremity tenderness. No CVA tenderness. Integumentary: No cyanosis. or jaundice. Neurological: The patient is awake and alert. No focal deficits. Psychiatric: Normal affect. Not anxious appearing. Course Administered Medications Acetaminophen (Tylenol) 650 mg PO Q4H PRN PRN Reason: pain/fever Stop: 02/12/20 15:19 Last Admin: 01/13/20 16:52 Dose: 650 mg Documented by: [id number] Potassium Chloride/Sodium Chloride (Normal Saline W/20 Meq Kcl) 20 meq in 1,000 mls @ 150 mls/hr IV .Q6H40M [facility] Stop: 01/13/20 22:39 Last Admin: 01/13/20 16:52 Dose: 150 mls/hr Documented by: [id number] Discontinued Medications Acetaminophen (Tylenol) 650 mg PO ONE STA Stop: 01/13/20 10:10 Last Admin: 01/13/20 10:19 Dose: 650 mg Documented by: [id number] Sodium Chloride (Nss 1000ml) 1,000 mls @ 999 mls/hr IV .Q1H1M KAELA Stop: 01/13/20 11:15 Last Infusion: 01/13/20 12:00 Dose: 0 mls/hr Documented by: [id number] Admin: 01/13/20 10:19 Dose: 999 mls/hr Documented by: [id number] Ceftriaxone Sodium (Rocephin) 2,000 mg in 70 mls @ 140 mls/hr IV NOW STA Stop: 01/13/20 10:38 Last Infusion: 01/13/20 11:40 Dose: 0 mls/hr Documented by: [id number] Admin: 01/13/20 11:01 Dose: 140 mls/hr Documented by: [id number] Lactated Ringer's (Lr) 1,000 mls @ 999 mls/hr IV .Q1H1M ONE Stop: 01/13/20 15:18 Last Infusion: 01/13/20 16:54 Dose: 0 mls/hr Documented by: [id number] Admin: 01/13/20 15:55 Dose: 999 mls/hr Documented by: [id number] Morphine Sulfate (Morphine Sulfate) 4 mg IV NOW STA Stop: 01/13/20 10:11 Last Admin: 01/13/20 10:19 Dose: 4 mg Documented by: [id number] Ondansetron HCl (Zofran) 4 mg IV NOW STA Stop: 01/13/20 10:11 Last Admin: 01/13/20 10:19 Dose: 4 mg Documented by: [id number] Medical Decision Making Differential Diagnosis Obstructive uropathy, pyelonephritis, bacteremia, UTI, renal colic, rouleaux, dehydration Medical Records Attestation: I reviewed the patient's medical records. The patient was admitted to the hospital late November for an obstructive right mid ureteral stone. She had a fever and pyelonephritis and a stent was placed by Dr. Ojeda. She had 2+ blood cultures for E. coli and a urine culture positive for E. coli. She was placed on Cipro at that time. 4 days ago she underwent lithotripsy with Dr. Hollins. Home Medications Current Medication List: was personally reviewed by me Laboratory Data Attestation: I reviewed the patient's lab results. Result diagrams: 01/13/20 10:15 01/13/20 10:15 Lab Results 01/13/20 01/13/20 01/13/20 Range/Units 10:10 10:15 10:15 WBC 8.95 (4.8-10.8) K/uL RBC 4.33 (4.2-5.4) M/uL Hgb 13.5 (12.0-16.0) g/dL Hct 40.5 (37-47) % MCV 93.5 (80-100) fL MCH 31.2 (25-34) pg MCHC 33.3 (32-36) g/dL RDW Std Deviation 46.8 H (36.4-46.3) fL RDW Coeff of Alex 13.5 (11.5-14.5) % Plt Count 206 (130-400) K/uL MPV 9.6 (7.4-10.4) fL Immature Gran % (Auto) 0.3 % Neut % (Auto) 78.2 % Lymph % (Auto) 10.1 % [place] % (Auto) 11.1 % Eos % (Auto) 0.1 % Baso % (Auto) 0.2 % Neut # (Auto) 7.00 H (1.4-6.5) K/uL Lymph # (Auto) 0.90 L (1.2-3.4) K/uL [place] # (Auto) 0.99 H (0.11-0.59) K/uL Eos # (Auto) 0.01 (0-0.5) K/uL Baso # (Auto) 0.02 (0-0.2) K/uL Immature Gran # (Auto) 0.03 H (0.00-0.02) K/uL Sodium 131 L (136-145) mmol/L Potassium 3.4 L (3.5-5.1) mmol/L Chloride 100 (98-107) mmol/L Carbon Dioxide 23 (21-32) mmol/L Anion Gap 8.0 (3-11) BUN 9 (7-18) mg/dl Creatinine 0.78 (0.6-1.2) mg/dl Est Cr Clr Drug Dosing 100.8 ml/min Est GFR ( Amer) 106.4 Est GFR (Non-Af Amer) 91.8 BUN/Creatinine Ratio 11.6 (10-20) Glucose 106 H (70-99) mg/dl Calcium 8.8 (8.5-10.1) mg/dl Total Bilirubin 1.2 H (0.2-1) mg/dl AST 27 (15-37) U/L ALT 49 (12-78) U/L Alkaline Phosphatase 74 (45-117) U/L Total Protein 7.5 (6.4-8.2) gm/dl Albumin 3.5 (3.4-5.0) gm/dl Globulin 4.0 (2.5-4.0) gm/dl Albumin/Globulin Ratio 0.9 (0.9-2) Lipase 65 L (73-393) U/L Urine Color Dark Yellow Urine Appearance Cloudy A (Clear) Urine pH 7.0 (4.5-7.5) Ur Specific [place] 1.019 (1.000-1.030) Urine Protein 2+ H (Negative) Urine Glucose (UA) Negative (Negative) Urine Ketones 2+ H (Negative) Urine Blood 2+ H (Negative) Urine Nitrite Negative (Negative) Urine Bilirubin Negative (Negative) Urine Urobilinogen Negative (Negative) Ur Leukocyte Esterase 2+ H (Negative) Urine WBC (Auto) 10-30 H (0-5) /hpf Urine RBC (Auto) >30 H (0-4) /hpf U Hyaline Cast (Auto) 1-5 (0-5) /lpf U Epithel Cells (Auto) >30 H (0-5) /lpf Urine Bacteria (Auto) 1+ H (Negative) Other Crystals Talc (None Prsent) Urine Mucus Present A (None Prsent) POC Ur Test (NEG) 01/13/20 Range/Units 10:23 WBC (4.8-10.8) K/uL RBC (4.2-5.4) M/uL Hgb (12.0-16.0) g/dL Hct (37-47) % MCV (80-100) fL MCH (25-34) pg MCHC (32-36) g/dL RDW Std Deviation (36.4-46.3) fL RDW Coeff of Alex (11.5-14.5) % Plt Count (130-400) K/uL MPV (7.4-10.4) fL Immature Gran % (Auto) % Neut % (Auto) % Lymph % (Auto) % [place] % (Auto) % Eos % (Auto) % Baso % (Auto) % Neut # (Auto) (1.4-6.5) K/uL Lymph # (Auto) (1.2-3.4) K/uL [place] # (Auto) (0.11-0.59) K/uL Eos # (Auto) (0-0.5) K/uL Baso # (Auto) (0-0.2) K/uL Immature Gran # (Auto) (0.00-0.02) K/uL Sodium (136-145) mmol/L Potassium (3.5-5.1) mmol/L Chloride (98-107) mmol/L Carbon Dioxide (21-32) mmol/L Anion Gap (3-11) BUN (7-18) mg/dl Creatinine (0.6-1.2) mg/dl Est Cr Clr Drug Dosing ml/min Est GFR ( Amer) Est GFR (Non-Af Amer) BUN/Creatinine Ratio (10-20) Glucose (70-99) mg/dl Calcium (8.5-10.1) mg/dl Total Bilirubin (0.2-1) mg/dl AST (15-37) U/L ALT (12-78) U/L Alkaline Phosphatase (45-117) U/L Total Protein (6.4-8.2) gm/dl Albumin (3.4-5.0) gm/dl Globulin (2.5-4.0) gm/dl Albumin/Globulin Ratio (0.9-2) Lipase (73-393) U/L Urine Color Urine Appearance (Clear) Urine pH (4.5-7.5) Ur Specific [place] (1.000-1.030) Urine Protein (Negative) Urine Glucose (UA) (Negative) Urine Ketones (Negative) Urine Blood (Negative) Urine Nitrite (Negative) Urine Bilirubin (Negative) Urine Urobilinogen (Negative) Ur Leukocyte Esterase (Negative) Urine WBC (Auto) (0-5) /hpf Urine RBC (Auto) (0-4) /hpf U Hyaline Cast (Auto) (0-5) /lpf U Epithel Cells (Auto) (0-5) /lpf Urine Bacteria (Auto) (Negative) Other Crystals (None Prsent) Urine Mucus (None Prsent) POC Ur Test NEG (NEG) Imaging Data Radiologist's Impression: 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 Prior lithotripsy. COMPARISON STUDY: 01/09/2020 FINDINGS: Multiple fragmented right renal calcifications are unchanged. There is a right ureteral stent unchanged. There are several calcifications of the mid right ureter adjacent to the inferior endplate of L3. These have migrated distally 1 cm from the prior study. Nonobstructive bowel pattern. Faint left renal nephrocalcinosis. IMPRESSION: 1. Right ureteral stent in good position. 2. Mid right ureteral calculi 1 cm distal to their location on the prior study of 01/09/2020 ACT 112: Negative or not required by law. The above report was generated using voice recognition software. It may contain grammatical, syntax or spelling errors. Electronically signed by: Aurelio Bernard M.D. 01/13/2020 12:37 PM Blood Pressure Blood Pressure Findings: Elevated blood pressure Blood Pressure Disposition: further management by hospitalist DARYL Pastor I did evaluate the patient as noted above. The patient is presenting with a fever of 102 since her lithotripsy 4 days ago. She also has urinary symptoms. She does have tenderness in the right lower abdomen but she states that has been there since she started having kidney stone pain a month ago. IV access was established. I did order and personally reviewed the images of the patient's KUB x-ray as described above. The stent appears to be in place. The right ureteral calculi is 1 cm distal to its prior location on previous x-ray. I did order a urine analysis. She does have evidence of an infection. Blood cultures were ordered. I did treat the patient with ceftriaxone 2 g IV. She was also given normal saline, morphine and Zofran IV. I did order and review the arleth ent's blood work as noted in the electronic medical record. Her white blood cell count is not elevated. She has hyponatremia and hypokalemia. I did reassess the patient. I did discuss the test results with her. She is feeling better. I did discuss the case with Dr. Irvin Velazquez who agreed with my plan for IV antibiotics and hospitalization. I did discuss the case with the hospitalist and wrapper caser. She was given Tylenol for her fever and her temperature did come down. Impression & Plan Bacteremia, UTI (urinary tract infection), Renal colic on right side Discharge Plan Visit Data *Final* Discharge Date/Time: 01/13/20 14:36 Chief Complaint: Fever Stated Complaint: POST SURG FRI - FEVER 102 ED Provider: Jose Ramon Storey Discharge Problem: Bacteremia, UTI (urinary tract infection), Renal colic on right side Patient Disposition: Admitted As Inpatient Discharge Instructions Interventions: ED Discharge Assessment Last Done: 01/13/20 14:36
[2020-01-13] MEDS ORDERED: SODIUM CHLORIDE 0.9% 1000ML 1,000 ML IV SCH (10:15)
[2020-01-13 10:37] LABS: Basophils # (auto) 0.02 K/uL (0-0.2); Basophils % (auto) 0.2 %; Eosinophils # (auto) 0.01 K/uL (0-0.5); Eosinophils % (auto) 0.1 %; Hematocrit (blood only) 40.5 % (37-47); Hemoglobin 13.5 g/dL (12.0-16.0); Immature Granulocytes # (auto) 0.03 K/uL (0.00-0.02); Immature Granulocytes % (auto) 0.3 %; Lymphocytes % (auto) 10.1 %; Mean Corpuscular Hemoglobin 31.2 pg (25-34); Mean Corpuscular Hgb Conc 33.3 g/dL (32-36); Mean Corpuscular Volume 93.5 fL (80-100); Mean Platelet Volume 9.6 fL (7.4-10.4); Monocytes # (auto) 0.99 K/uL (0.11-0.59); Monocytes % (auto) 11.1 %; Neutrophils % (auto) 78.2 %; Platelet Count 206 K/uL (130-400); RDW Coefficient of Variation 13.5 % (11.5-14.5); RDW Standard Deviation 46.8 fL (36.4-46.3); Red Blood Count 4.33 M/uL (4.2-5.4); White Blood Count 8.95 K/uL (4.8-10.8)
[2020-01-13 10:38] LABS: Appearance Urine Cloudy (Clear); Bacteria Urine Automated 1+ (Negative); Blood Urine 2+ (Negative); Color Urine Dark Yellow; Epithelial Cell Urine Auto >30 /lpf (0-5); Glucose Urine UA Negative (Negative); Ketones Urine 2+ (Negative); Leukocyte Esterase Urine 2+ (Negative); Nitrite Urine Negative (Negative); Protein Urine 2+ (Negative); RBC Urine Automated >30 /hpf (0-4); Specific Gravity Urine 1.019 (1.000-1.030); Urobilinogen Urine Negative (Negative)
[2020-01-13 10:51] LABS: Bilirubin Urine Negative (Negative); Ictotest Urine Negative (Negative)
[2020-01-13 10:52] LABS: Mucus Urine Present (None Prsent)
[2020-01-13 10:53] LABS: Albumin Level 3.5 gm/dl (3.4-5.0); BUN Creatinine Ratio 11.6 (10-20); Calcium 8.8 mg/dl (8.5-10.1); Creatinine Clr Calc Pharmacy 100.8 ml/min; Est GFR (African American) 106.4; Est GFR (Non-African American) 91.8; Potassium 3.4 mmol/L (3.5-5.1)
[2020-01-13 10:55] LABS: Albumin Globulin Ratio 0.9 (0.9-2); Bilirubin,Total 1.2 mg/dl (0.2-1); Total Protein 7.5 gm/dl (6.4-8.2)
--- NOTE | 2020-01-13 12:39 | XRay Report ---
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 Prior lithotripsy . COMPARISON STUDY: 01/09/2020 FINDINGS: Multiple fragmented right renal calcifications are unchanged. There is a right ureteral stent unchanged. There are several calcifications of the mid right ureter adjacent to the inferior endplate of L3. The se have migrated distally 1 cm from the prior study. Nonobstructive bowel pattern. Faint left renal nephrocalcinosis. IMPRESSION: 1. Right ureteral stent in good position. 2. Mid right ureteral calculi 1 cm distal to their location on the prior study of 01/09/2020 ACT 112: Negative or not required by law. The above report was generated using voice recognition software. It may contain grammatical, syntax or spelling errors. Electronically signed by: Aurelio Bernard M.D. 01/13/2020 12:37 PM
--- NOTE | 2020-01-13 14:05 | History & Physical Report ---
Date of Service January 13, 2020 Assessment & Plan (1) Pyelonephritis: In setting of right ureteral stent and recent lithotripsy therefore assumed resistance to quinolones. Patient was also treated for recent e. coli bacteremia/pyelonephritis in setting of obstructing stone with ciprofloxacin for 14 days. Prior e. coli sensitive to ceftriaxone. If patient spiking fever after 24 hours of antibiotic or septic will broaden antibiotic coverage. ER physician (Dr Storey) discussed with urology (Dr. Pandya) and since stent in place no further intervention other than antibiotics required at this stage. If she becomes septic will need to consult urology for stent exchange and get ultrasound KUB to assess for hydronephrosis. NSS 1L bolus given in ER, additional LR bolus now, then NSS + 20meq KCl @ 150ml/hr for 1 bag Ceftriaxone 2 g IV daily (2) Right ureteral calculus: Remains on x-ray KUB despite recent lithotripsy but move distally No stone pathology seen therefore continue to strain urine for sample. (3) DVT prophylaxis: SCDs, encourage mobility Admission and Anticipated Discharge Date Admission Date: January 13, 2020 History of Present Illness Chief Complaint: Fever, urinary frequency Primary Care Provider: Lili Friedman MD Josh Guillen is a 44-year-old female with a significant past medical history of kidney stones who presents to the ER due to fevers and urine frequency. She has a notable recent history with hospitalization here from December 17-2019 for right obstructing 5 mm ureteral calculus and pyelonephritis. On this admission a right ureteral stent was placed and she was discharged on 14 days of ciprofloxacin. She notes general improvement from that hospitalization with resolution of her pain. She was followed up in the urology office with repeat KUB showing unchanged position of a 5 mm right ureteral calculus therefore underwent subsequent lithotripsy on January 09, [address] Hollins. Initially she was doing well after the lithotripsy 4 days prior. However 3 days ago she started having a low-grade fever. Yesterday however it was all day long with associated urine frequency passing a small amount of urine each time. No dysuria. Right flank pain returned similar to her last hospitalization for pyelonephritis. Right flank pain without radiation current severity 5/10, 7- 8/10 when she first came to the ER. Of note she is not taking tamsulosin due to side effects of dizziness. She did not try taking this medication at night rather than in the morning. Allergies Allergy/AdvReac Type Severity Reaction Status Date / Time Penicillins Allergy Unknown HIVES Verified 01/13/20 10:57 Home Medications Home Medications Medication Instructions Recorded Confirmed Type oxycodone 5 mg PO Q8H PRN #20 tab 12/20/19 01/13/20 Rx tamsulosin 0.4 mg capsule 0.4 mg PO DAILY #30 cap 12/30/19 01/13/20 Rx acetaminophen [Tylenol Extra 500 mg PO UD PRN 01/02/20 01/13/20 History Strength] hydrocodone-acetaminophen 1 tab PO Q6H PRN #20 tab 01/09/20 01/13/20 Rx Past Med/Surg History Medical History Endometriosis History of blood transfusion Hypertension Hypothyroidism (Chronic) HX OF, NO CURRENT MEDS - MONITORS Kidney stones (Resolved) Renal colic (Acute) Right ureteral calculus (Acute) Surgical History H/O tubal ligation History of colonoscopy History of gynecologic surgery BURNED ENDOMETRIOSIS OFF (MULTIPLE TIMES) History of laparoscopy Reports "nicked an artery" requiring 4 pints of blood -- approx age 12 History of nephrolithotomy with removal of calculi Family History Aunt Myocardial infarction Breast cancer Grandfather (Paternal) Lung cancer Grandmother (Paternal) Breast cancer Sister Breast cancer Half-Sister Other Family history of diabetes mellitus Denies family history of Ovarian cancer Prostate cancer Colorectal cancer Social History Preferred Language: Divehi Communication Ability: Effective 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 Beliefs That Will Affect Care: None marital status: Current Living Situation: Alone current occupational status: employed Other Information That Helps Us Care for You: No Feels Safe at Home: Yes Safety Concerns: Feels Safe At This Time Smoking Status: Never smoker Number of Years Since Quit: 20 ; Hx Alcohol Use: Yes Alcohol type: wine Alcohol Intake Frequency: Weekly Alcohol Intake Frequency Comment: 3 days a week Hx Substance Use: No Dental Care, Regularly: Yes Physical Activity Frequency: Daily Seatbelt Use: always Review of Systems Review of Systems: All systems reviewed & are unremarkable except as noted in HPI & below Physical Exam Constitutional: WD/WN, vitals as above no acute distress Eyes: + anicteric sclerae; normal pupil size ENMT: external ear and nose normal, oropharynx normal Neck: trachea midline, no thyromegaly Respiratory: normal respiratory effort, lungs clear to auscultation Cardiovascular: RRR, no murmur, no edema Gastrointestinal (Abdomen): normal bowel sounds, soft, nontender, no hepatosplenomegaly Musculoskeletal: no cyanosis or clubbing, extremities motor strength 5/5 Skin: no rashes, warm and dry Neurologic: moves all extremities and awake; not confused Psychiatric: A+Ox3, euthymic affect Genitourinary: + CVA tenderness (right sided) Results & Data Results & Data ([facility]) Vital Signs (Past 12 Hours) Vital Signs Temp Pulse Pulse Resp BP BP Pulse Ox 01/13/20 12:40 37.3 C 01/13/20 11:04 38.4 C H 84 18 151/88 H 98 01/13/20 10:25 97 01/13/20 09:55 38.6 C H 104 H 20 128/86 97 Diagnostic Findings XR KUB/Abdomen 1 view IMPRESSION: 1. Right ureteral stent in good position. 2. Mid right ureteral calculi 1 cm distal to their location on the prior study of 01/09/2020 Code Status & VTE Plan Code Status Full VTE Prophylaxis Plan VTE Prophylaxis will be ordered: Yes PG Care Time/CCT Total # of Minutes Spent Total Time Spent with Patient: Total time spent is greater than 50% in coordi nation of care (as documented) at patient's floor/unit and/or counseling patient: Coding Level of Care Code 45166 Initial Inpt Care Lvl 3 Diagnoses Pyelonephritis N12 Right ureteral calculus N20.1 DVT prophylaxis Z29.9
[2020-01-13] MEDS ORDERED: NSS + 20MEQ KCL 20 MEQ/1,000 ML BAG IV SCH (14:15)
[2020-01-13] MEDS ORDERED: LACTATED RINGER'S 1,000 ML IV ONE (14:18)
[2020-01-13] MEDS ORDERED: POLYETHYLENE (MIRALAX) 17 GM PACK PO PRN (15:20)
[2020-01-13] MEDS ORDERED: OXYCODONE HCL IR 5 MG TAB (IMMEDIATE RELEASE) PO PRN (15:20)
[2020-01-13] MEDS ORDERED: MAGNESIUM HYDROXIDE SUSP 30 ML UDC PO PRN (15:20)
[2020-01-13] MEDS ORDERED: ONDANSETRON INJ 2 MG/ML 2 ML VIAL IV PRN (15:20)
[2020-01-13] MEDS ORDERED: ALUMINUM/MAGNESIUM SUSP 30 ML UDC PO PRN (15:20)
[2020-01-13] MEDS: ACETAMINOPHEN 325 MG TAB PO PRN (16:52)
[2020-01-13] MEDS: OXYCODONE HCL IR 5 MG TAB (IMMEDIATE RELEASE) PO PRN (18:09)
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
[2020-01-14] MEDS: ACETAMINOPHEN 325 MG TAB PO PRN (01:23)
[2020-01-14 06:06] LABS: Basophils # (auto) 0.01 K/uL (0-0.2); Basophils % (auto) 0.2 %; Eosinophils # (auto) 0.18 K/uL (0-0.5); Eosinophils % (auto) 2.8 %; Hematocrit (blood only) 34.9 % (37-47); Hemoglobin 11.7 g/dL (12.0-16.0); Immature Granulocytes # (auto) 0.02 K/uL (0.00-0.02); Immature Granulocytes % (auto) 0.3 %; Lymphocytes # (auto) 1.27 K/uL (1.2-3.4); Lymphocytes % (auto) 19.8 %; Mean Corpuscular Hemoglobin 31.3 pg (25-34); Mean Corpuscular Hgb Conc 33.5 g/dL (32-36); Mean Corpuscular Volume 93.3 fL (80-100); Mean Platelet Volume 9.4 fL (7.4-10.4); Monocytes # (auto) 1.11 K/uL (0.11-0.59); Monocytes % (auto) 17.3 %; Neutrophils # (auto) 3.81 K/uL (1.4-6.5); Neutrophils % (auto) 59.6 %; Platelet Count 156 K/uL (130-400); RDW Coefficient of Variation 13.8 % (11.5-14.5); RDW Standard Deviation 47.2 fL (36.4-46.3); Red Blood Count 3.74 M/uL (4.2-5.4)
[2020-01-14 06:35] LABS: BUN Creatinine Ratio 13.1 (10-20); Calcium 8.3 mg/dl (8.5-10.1); Creatinine Clr Calc Pharmacy 128.9 ml/min; Est GFR (African American) 126.9; Est GFR (Non-African American) 109.5; Potassium 3.5 mmol/L (3.5-5.1)
--- NOTE | 2020-01-14 09:48 | XRay Report ---
XR KUB/Abdomen 1 view CLINICAL HISTORY: stone nephrocalcinosis COMPARISON STUDY: 01/13/2020 FINDINGS: Unchanged position of mid right ureteral calcifications. These again are medially adjacent to the inferior endplate of L3. A fragmented calcifications of the right kidney are unchanged. The right ureteral stent is unchanged in position. IMPRESSION: No change compared to the prior study. Unchanging right ureteral calcifications. Stable right ureteral stent. ACT 112: Negative or not required by law. The above report was generated using voice recognition software. It may contain grammatical, syntax or spelling errors. Electronically signed by: Aurelio Bernard M.D. 01/14/2020 9:46 AM
[2020-01-14] MEDS: cefTRIAXone SODIUM 2,000 MG in DEXTROSE 5% 50 ML IV SCH (11:03)
--- NOTE | 2020-01-14 12:03 | Hospitalist Progress Note ---
Date of Service January 14, 2020 Assessment & Plan (1) Pyelonephritis: Pyelonephritis possibly due to recent lithotripsy procedure or stent placement - assumed resistance to quinolones Patient was also treated for recent e. coli bacteremia/pyelonephritis in setting of obstructing stone with ciprofloxacin for 14 days. Prior e. coli sensitive to ceftriaxone, continue as urine culture still pending Urology consulted - continue antibiotics. Will need ureteral stone removed but they would prefer to wait until she has been treated for infection, stent will offer protection from obstruction (2) Right ureteral calculus: Remains on x-ray KUB despite recent lithotripsy but moved distally No stone pathology seen therefore continue to strain urine for sample. Will follow with urology after infection treatment as above (3) DVT prophylaxis: SCDs, encourage mobility Admission and Anticipated Discharge Date Admission Date: January 13, 2020 Subjective Ms. Guillen is feeling much better today, no further fevers since 0130 this morning. She has mild flank discomfort. ROS Constitutional: no chills, aches, sweats or fever Respiratory: no sob,cough, sputum, or wheezing Cardiac: no chest pain, palpitations, edema, orthopnea or lightheadedness GI: no abdominal pain, nausea, vomiting, diarrhea or constipation : no dysuria or hesitancy Extremities: no joint pain or weakness Skin: no rash All other systems reviewed and negative Physical Exam Physical Exam: General: no distress Eyes: normal inspection, PERLL Respiratory: chest non tender, clear to auscultation, normal breath sounds, no respiratory distress, no accessory muscle use Cardiac: regular rate and rhythm, no rub or gallop, no murmur, no edema, no jvd GI/: active bowel sounds, no abd pain or tenderness, soft, non distended Extremities: normal range of motion, normal strength, non tender Neuro/Psych: alert and oriented x 3, normal mood and affect Skin: normal color, dry Results & Data Results & Data ([facility]) Vital Signs (Past 12 Hours) Vital Signs Temp Pulse Resp BP Pulse Ox 01/14/20 08:06 36.7 C 65 18 149/85 H 97 01/14/20 04:03 36.6 C 01/14/20 01:22 37.8 C H PG Care Time/CCT Total # of Minutes Spent Total Time Spent with Patient: Total time spent is greater than 50% in coordination of care (as documented) at patient's floor/unit and/or counseling patient: Coding Level of Care Code 06569 Subseq Hosp Care Lvl 2 Diagnoses Pyelonephritis N12 Right ureteral calculus N20.1 DVT prophylaxis Z29.9
[2020-01-14] MEDS: OXYCODONE HCL IR 5 MG TAB (IMMEDIATE RELEASE) PO PRN (17:13)
[2020-01-14] MEDS ORDERED: TAMSULOSIN HCL 0.4 MG CAP PO SCH (21:00)
[2020-01-15 08:22] LABS: Hematocrit (blood only) 37.8 % (37-47); Hemoglobin 12.7 g/dL (12.0-16.0); Mean Corpuscular Hemoglobin 31.4 pg (25-34); Mean Corpuscular Hgb Conc 33.6 g/dL (32-36); Mean Corpuscular Volume 93.6 fL (80-100); Mean Platelet Volume 9.3 fL (7.4-10.4); Platelet Count 204 K/uL (130-400); RDW Coefficient of Variation 13.9 % (11.5-14.5); RDW Standard Deviation 47.9 fL (36.4-46.3); Red Blood Count 4.04 M/uL (4.2-5.4); White Blood Count 5.23 K/uL (4.8-10.8)
[2020-01-15 08:55] LABS: BUN Creatinine Ratio 10.4 (10-20); Calcium 9.2 mg/dl (8.5-10.1); Creatinine Clr Calc Pharmacy 115.6 ml/min; Est GFR (African American) 122.4; Est GFR (Non-African American) 105.6; Potassium 3.6 mmol/L (3.5-5.1)
[2020-01-15] MEDS: cefTRIAXone SODIUM 2,000 MG in DEXTROSE 5% 50 ML IV SCH (10:31)
[2020-01-15 11:37] LABS: Lyme Ab IgG w/WB Rflx Negative (Negative); Lyme Ab IgM w/WB Rflx Negative (Negative)
--- NOTE | 2020-01-15 13:12 | Discharge Summary ---
Date of Service January 15, 2020 Admission HPI Per Admitting Provider Josh Guillen is a 44-year-old female with a significant past medical history of kidney stones who presents to the ER due to fevers and urine frequency. She has a notable recent history with hospitalization here from December 17-2019 for right obstructing 5 mm ureteral calculus and pyelonephritis. On this admission a right ureteral stent was placed and she was discharged on 14 days of ciprofloxacin. She notes general improvement from that hospitalization with resolution of her pain. She was followed up in the urology office with repeat KUB showing unchanged position of a 5 mm right ureteral calculus therefore u nderwent subsequent lithotripsy on January 09, [address] Hollins. Initially she was doing well after the lithotripsy 4 days prior. However 3 days ago she started having a low-grade fever. Yesterday however it was all day long with associated urine frequency passing a small amount of urine each time. No dysuria. Right flank pain returned similar to her last hospitalization for pyelonephritis. Right flank pain without radiation current severity 5/10, 7- 8/10 when she first came to the ER. Of note she is not taking tamsulosin due to side effects of dizziness. She did not try taking this medication at night rather than in the morning. Principal Diagnosis Pyelonephritis/UTI Discharge Exam Constitutional WD/WN, vitals as above Respiratory normal respiratory effort, lungs clear to auscultation Gastrointestinal (Abdomen) Inspection/Auscultation: abdomen normal to inspection and normal bowel sounds; abdomen not distended Percussion/Palpation: abdomen soft; abdomen nontender Musculoskeletal no cyanosis or clubbing, extremities motor strength 5/5 Skin no rashes, warm and dry Neurologic moves all extremities and awake Psychiatric A+Ox3, euthymic affect Discharge Data Allergies Allergy/AdvReac Type Severity Reaction Status Date / Time Penicillins Allergy Unknown HIVES Verified 01/13/20 10:57 Consultations 01/13/20 13:40 ED Decision to Admit Stat Hospital Course (1) Pyelonephritis: Pyelonephritis vs UTI with flank pain secondary to ureteral calculus - possibly due to recent lithotripsy procedure or stent placement Patient was also treated for recent e. coli bacteremia/pyelonephritis in setting of obstructing stone with ciprofloxacin for 14 days which ended about 2 weeks ago Prior e. coli sensitive to ceftriaxone provided inpatient, will give cefdinir for home as patient's urine culture grew mixed isabella Urology consulted - continue antibiotics. Will need ureteral stone removed but they would prefer to wait until she has been treated for infection, stent will offer protection from obstruction (2) Right ureteral calculus: Remains on x-ray KUB despite recent lithotripsy but moved distally Will follow with urology after infection treatment as above (3) Hepatic steatosis: As seen on CT from last admission Discussed lifestyle interventions Should follow up with pcp (4) DVT prophylaxis: SCDs, encourage mobility Total Time Total Time Spent Total Time Spent (In Minutes): greater than 30 minutes Discharge Plan Discharge Items Patient Disposition: Home - Self-Care Reason For Visit: RIGHT PYELONEPHRITIS Discharge Diagnosis: UTI, kidney stone Activity: Resume your previous activity Activity Comment: gradually as tolerated Non-emergency contact: Primary Care Provider Call non-emergency contact if: you have any medication questions Follow-up/Referrals: Christopher Tate MD [Physician] - (Please, follow up at [facility]. *A nurse from this office will contact you with the appointment information. If you have any questions, call the office at [phone].) Lili Friedman MD [Primary Care Provider] - (Please follow up within two weeks ) Diet: Regular Addtl Attending Provider Instructions: UTI/Pyelonephritis: Your urine culture was not able to isolate a bacteria. I will place you on an oral antibiotic similar to the one you had here for another week. Please see urology before your antibiotic is completed or touch base with them on whether they would like to extend the course. Your Lyme test was negative Hepatic steatosis (fatty liver): Please follow up with your primary care provider. You should see them for a hospital follow up in the next 2 weeks or so Patient education: Nonalcoholic fatty liver disease (NAFLD), including nonalcoholic steatohepatitis (KRUSE) (Beyond the Basics [email or web address]) Author:Aldo Sibley MD, MACP [facility] [employer] Program Specialist:Raciel Rucker MD [place] [facility] Specialist:Shanice Juarez MD, LILIYA, FACG Contributor Disclosures INTRODUCTION Nonalcoholic fatty liver disease (NAFLD) is a medical condition that is susie racterized by the buildup of fat (called fatty infiltration) in the liver (figure 1). There are two types of NAFLD: Nonalcoholic fatty liver (NAFL), a generally benign condition in which there is fatty infiltration but no inflammation Nonalcoholic steatohepatitis (KRUSE), in which there is fatty infiltration along with liver inflammation Alcohol abuse and other conditions can also lead to liver problems. To be diagnosed with either form of NAFLD, a person must not have a history of heavy alcohol use or another problem that might be causing the liver condition (such as hepatitis C). NONALCOHOLIC FATTY LIVER Nonalcoholic fatty liver (NAFL) is a generally benign condition that has become increasingly common in the [place] and [place] as weight gain and obesity have become more common. It is now the most common cause of liver disorder in the [place] and other Western industrialized countries. In NAFL, the liver functions normally and there are no symptoms. NAFL is often found when a person has imaging tests of the abdomen for other reasons (such as an ultrasound being done to look for gallstones). If you are overweight or obese, losing weight can reduce the amount of fat in your liver. Aside from this, there is no treatment for NAFL, although you should be vaccinated against hepatitis A and B (which can damage your liver) if you are not already immune. Many patients with NAFL never develop inflammation (KRUSE), although some do. NONALCOHOLIC STEATOHEPATITIS Nonalcoholic steatohepatitis (KRUSE) is a condition that causes inflammation and accumulation of fat and scar tissue in the liver. Although a similar condition can occur in people who abuse alcohol, KRUSE occurs in those who drink little to no alcohol. The exact cause of KRUSE is unknown. However, it is seen more frequently in people with certain medical conditions such as diabetes, obesity, and insulin resistance (see 'Conditions associated with nonalcoholic steatohepatitis' below). This combination of disorders if often called the "metabolic syndrome." It is not clear how many people have KRUSE because it causes no symptoms. However, KRUSE is diagnosed in about 3 to 5 percent of people in the [place] who have a liver biopsy (which may be done to check for a number of different liver conditions). Most people are between the ages of 40 and 60 years, although the condition can also occur in children over the age of 10 years. KRUSE is seen more often in women than in men. Treatment of KRUSE focuses on controlling some of the medical conditions associated with it (such as diabetes and obesity) and monitoring for progression. Some studies suggest people who drink coffee have a lower risk of developing liver scarring, and some researchers have suggested that moderate coffee consumption may be beneficial. As with nonalcoholic fatty liver disease, people with KRUSE should be vaccinated against hepatitis A and B if they are not already immune. Conditions associated with nonalcoholic steatohepatitis Although the cause of KRUSE is unknown, it is most frequently seen in people with one of more of the following conditions. Obesity More than 70 percent of people with KRUSE are obese. Diabetes Up to 75 percent of people with KRUSE have type 2 diabetes. This is a disorder that disrupts the way your body uses sugar. Normally, sugar gets into the cells with the help of a hormone called insulin, which is made in the pancreas. In people with type 2 diabetes, the body stops responding to normal or high levels of insulin, which causes sugar to build up in the blood; eventually, the pancreas becomes unable to produce enough insulin. (See "Patient education: Type 2 diabetes: Overview (Beyond the Basics)".) Hyperlipidemia About 20 to 80 percent of people with KRUSE have hyperlipidemia (high blood triglyceride levels and/or high blood cholesterol levels). (See "Patient education: High cholesterol and lipids (Beyond the Basics)".) Insulin resistance Insulin resistance refers to a state in which the body does not respond adequately to insulin, but the person does not yet have type 2 diabetes. Insulin resistance often occurs in people with hyperlipidemia who are obese; this group of symptoms is known as the metabolic syndrome and is frequently seen in people with KRUSE. (See "Patient education: Type 2 diabetes: Overview (Beyond the Basics)".) Drugs and toxins Several drugs used to treat other medical conditions have been linked to KRUSE, including amiodarone (brand names: Corderone, Pacerone), tamoxifen (brand names: Nolvadex, Tamone), perhexiline maleate (brand name: Pexhid), steroids (eg, prednisone, hydrocortisone), and synthetic estrogens. Certain pesticides have also been linked to KRUSE. Nonalcoholic steatohepatitis symptoms Most people with KRUSE have no symptoms. Rarely, KRUSE is found (after testing) in people with fatigue, a general feeling of being unwell, and a vague discomfort in their upper right abdomen, although it is not clear if these symptoms are related to KRUSE. Nonalcoholic steatohepatitis diagnosis KRUSE is most often discovered following routine blood tests. Additional tests help confirm the presence of KRUSE and rule out other types of liver disease. Imaging tests (such as ultrasound, CT scan, or magnetic resonance imaging [MRI]) may reveal fat accumulation in the liver but cannot differentiate KRUSE from other causes of liver disease that have a similar appearance. A liver biopsy may be required to confirm KRUSE if other causes of liver disease cannot be excluded. Liver function tests Blood tests to measure liver function measure levels of substances produced or metabolized by the liver. These levels can help to diagnose KRUSE and differentiate KRUSE from alcoholic hepatitis. Levels of two li ynes enzymes, aspartate aminotransferase (AST) and alanine aminotransferase (ALT) are elevated in about 90 percent of people with KRUSE. Other blood tests Additional blood tests are useful for ruling out other causes of liver disease. These usually include tests for viral hepatitis (hepatitis A, B, or C), and may include tests for less common causes of liver disease. (See "Patient education: Hepatitis A (Beyond the Basics)" and "Patient education: Hepatitis B (Beyond the Basics)" and "Patient education: Hepatitis C (Beyond the Basics)".) Liver biopsy and fibroscan Although other tests may suggest a diagnosis of KRUSE, sometimes a liver biopsy is required to confirm it. A liver biopsy may be needed if other causes of liver disease cannot be ruled out with standard blood and imaging tests. A liver biopsy can also help determine the severity of inflammation, detect liver scarring (called "fibrosis" or, in severe cases, "cirrhosis"), and may provide clues about the future course of the condition. The procedure involves collecting a small sample of liver tissue, which is sent to a laboratory for microscopic examination and biochemical testing. More detailed information about liver biopsies is available in a separate topic review. (See "Patient education: Liver biopsy (Beyond the Basics)".) Fibroscan is a noninvasive test that uses ultrasound to determine how "stiff" the liver is. This stiffness can then be used to estimate how much scarring there is in the liver and to determine if cirrhosis has developed. Where available, fibroscan is an alternative to liver biopsy for detecting liver scarring. Nonalcoholic steatohepatitis treatment There is no cure for KRUSE. Treatment aims to control the conditions that are associated with KRUSE such as obesity, diabetes, and hyperlipidemia. Several experimental treatments are being studied with drugs that treat insulin resistance. Weight loss Losing weight can help to reduce levels of liver enzymes and insulin, and can improve your quality of life. Weight loss should be gradual (for example 1 to 2 lbs per week) since rapid weight loss has been associated with worsening of liver disease. A healthcare provider or backup sawyer can provide an individualized weight loss plan. (See "Patient education: Losing weight (Beyond the Basics)".) Treatment of insulin resistance Several drugs are available for people with insulin resistance, and they are being studied in patients with KRUSE. Their role is not yet proven. More information about treatments for insulin resistance is available in a separate topic review. (See "Patient education: Type 2 diabetes: Treatment (Beyond the Basics)", section on 'Thiazolidinediones'.) Vitamin E For people with severe forms of KRUSE who do not also have diabetes or heart disease, healthcare providers sometimes recommend supplements of vitamin E. There is some evidence that vitamin E might reduce some of the liver damage that occurs as part of KRUSE, but the evidence is weak, and there is also evidence that high-doses of vitamin E supplements increase the risk of . Do not take vitamin E unless your healthcare provider recommends it. Avoid alcohol People with KRUSE should avoid drinking alcohol, because it can worsen liver disease. Nonalcoholic steatohepatitis prognosis KRUSE is typically a chronic, life-long condition. It is difficult to predict the progression of KRUSE in an individual. Few factors have been useful in predicting the course of this condition, although features in the liver biopsy can be helpful. The good news is many people with KRUSE will not develop serious liver problems. One study showed that most people with KRUSE live as long as those without it. Furthermore, liver function tests are stable over time in most people with KRUSE. However, in some people, KRUSE gets worse over time. The most serious complication of KRUSE is cirrhosis, which is when the liver becomes severely scarred. Cirrhosis does not always cause symptoms, but when symptoms do occur, they can include swelling in the legs, trouble breathing, or fatigue. Older people with diabetes may be at increased risk for developing cirrhosis. (See "Patient education: Cirrhosis (Beyond the Basics)".) People with KRUSE often have the metabolic syndrome (insulin resistance, obesity, and hyperlipidemia) (see 'Conditions associated with nonalcoholic steatohepatitis' above). The metabolic syndrome puts you at increased risk for heart disease. The good news is that the treatments for KRUSE (particularly weight loss) also help treat the other problems that are part of the metabolic syndrome. WHERE TO GET MORE INFORMATION Your healthcare provider is the best source of information for questions and concerns related to your medical problem. The following organizations also provide reliable health information. National Library of Medicine (www.nlm.nih.gov/medlineplus/healthtopics.html) National [employer] of Diabetes and Digestive and Kidney Diseases (www.niddk.nih.gov) The [place] Association for the Study of Liver Diseases (www.aasld.org) The [place] (www.liverfoundation.org) Use of UpToDate is subject to the Subscription and License Agreement. Topic 4577 Version 18.0 Pending Studies at Discharge: No Stand-Alone Forms: My [employer], Opioid Pain Management, Smoking Ce ssation Medications and DC Order Prescriptions: New cefdinir 300 mg capsule 300 mg PO BID 7 Days Qty: 14 RF: 0 Continued tamsulosin 0.4 mg capsule 0.4 mg PO DAILY Qty: 30 RF: 0 oxycodone 5 mg tablet 5 mg PO Q8H PRN (Reason: pain) Qty: 20 RF: 0 acetaminophen [Tylenol Extra Strength] 500 mg Tablet 500 mg PO UD PRN (Reason: Pain) RF: 0 hydrocodone-acetaminophen 5-325 mg tablet 1 tab PO Q6H PRN (Reason: pain) Qty: 20 RF: 0 Discharge Orders: Discharge Order (Routine); Ordered 01/15/20 Ordered By: Mary العراقي/Other Patient Handouts: Anatomy of the Female Urinary Tract Admission Data Admit Date/Time: 01/13/20 14:03 Attending Provider: John Lemon Admit Provider: Jose Ramon Cates Primary Care Provider: Lili Friedman Other Providers: John Lemon Other Interventions: Discharge Summary Assessment (RN) Last Done: 01/15/20 13:27 DC Date/Time DO NOT enter until pt leaves facility: 01/15/20 14:38 Supervising Physician Co-Signing Physician Notes I supervised Mary West NP on this patient's care. I examined the patient today independently of her. I discussed the plan of care with her with the plan being as written in her note except for any following changes/exceptions: None. In no distress today. She is feeling well. Will continue oral abx in the same generation as ceftriaxone (cefdinir) and [place] [facility]. Coding Level of Care Code D/C Day Management >30 mins Diagnoses Pyelonephritis N12 Right ureteral calculus N20.1 Hepatic steatosis K76.0 DVT prophylaxis Z29.9
== END 2020-01-15 14:38 | disposition home or self-care (01) | DRG 699 ==
LOC: ED 09:43 → 2W 14:03 → SUATTDRO 14:03 → 2W 14:36 → 3W 23:53